=== PATIENT | female | born 1970 | race Caucasian/White ===

== ENCOUNTER 2019-09-28 07:23 | Emergency (ER) | payer MEDICAID, OTHER ==
[2019-09-28] MEDS ORDERED: Metoclopramide 10 MG/2 ML SDV IM ONE (08:17)
[2019-09-28] MEDS ORDERED: Dicyclomine 20 MG/2 ML SDV IM ONE (08:20)
[2019-09-28] MEDS ORDERED: Sodium Chloride 0.9% 1,000 ML IV ONE (08:21)
[2019-09-28] MEDS ORDERED: GI Cocktail Oral Solution 30 ML PO ONE (08:50)
[2019-09-28 08:53] LABS: ANION GAP 15.1
--- NOTE | 2019-09-28 09:01 | EDM.PDOC ---
ED HPI GENERAL MEDICAL PROBLEM - General Chief Complaint: Abdominal Pain Stated Complaint: THROWING UP Time Seen by Provider: 09/28/19 07:58 Source of Information: Reports: Patient, RN History Limitations: Reports: No Limitations - History of Present Illness INITIAL COMMENTS - FREE TEXT/NARRATIVE: 49-year-old female who presents to the ER with complaints of upper abdominal pain and dry heaving 4 hours. Patient reports eating cereal last night and got up this morning with abdominal pain. Pain is reported as 9 out of 10 and described as sharp. Patient was seen in the clinic a couple of days ago with complaints of the same with a negative ultrasound. Patient reports she's had similar symptoms in [place] a couple of months ago and they couldn't find anything. She denies any gallbladder problems, pancreatitis, illegal drugs, but admits to smoking marijuana daily for nausea. She tried Zofran prior to ER visit and vomited. She denies any bloody emesis, diarrhea, and constipation. Had a bowel movement prior to ER visit. Nothing makes pain better but movement makes it worse. Denies alcohol consumption. Denies any history of diabetes.she denies any upper respiratory infection, fevers or chills, shortness of breath, chest pain, and palpitations. Epigastric Pain Score (Numeric/FACES): 9 - Related Data Allergies Allergy/AdvReac Type Severity Reaction Status Date / Time gabapentin Allergy Rash Verified 09/28/19 07:47 sumatriptan [From Imitrex] Allergy Vomiting Verified 09/28/19 07:46 Home Meds: Home Meds Levothyroxine [Synthroid] 188 mcg PO ACBREAKFAST 09/28/19 [History] Propranolol HCl 40 mg PO DAILY 09/28/19 [History] lisinopriL [Lisinopril] 10 mg PO DAILY 09/28/19 [History] Past Medical History HEENT History: Reports: Impaired Vision Cardiovascular History: Reports: None Respiratory History: Reports: None Gastrointestinal History: Reports: None Genitourinary History: Reports: None [employer] History: Reports: Musculoskeletal History: Reports: None Neurological History: Reports: None Psychiatric History: Reports: None Endocrine/Metabolic History: Reports: None Hematologic History: Reports: None Immunologic History: Reports: None Oncologic (Cancer) History: Reports: None Dermatologic History: Reports: None - Infectious Disease History Infectious Disease History: Reports: Chicken Pox, Hepatitis C - Past Surgical History Head Surgeries/Procedures: Reports: None HEENT Surgical History: Reports: None Cardiovascular Surgical History: Reports: None Respiratory Surgical History: Reports: None Female Surgical History: Reports: Hysterectomy Musculoskeletal Surgical History: Reports: None Social & Family History - Family History Family Medical History: Noncontributory - Tobacco Use Smoking Status *Q: Current Every Day Smoker Years of Tobacco use: 40 Packs/Tins Daily: 0.5 Second Hand Smoke Exposure: No - Caffeine Use Caffeine Use: Reports: Coffee, Soda - Recreational Drug Use Recreational Drug Use: No ED ROS GENERAL - Review of Systems Review Of Systems: Comprehensive ROS is negative, except as noted in HPI. ED EXAM, GI/ABD - Physical Exam Exam: See Below Exam Limited By: No Limitations General Appearance: Alert, Moderate Distress Respiratory/Chest: No Respiratory Distress, Lungs Clear, Normal Breath Sounds, No Accessory Muscle Use, Chest Non-Tender Cardiovascular: Normal Peripheral Pulses, Regular Rate, Rhythm, No Edema, No Gallop, No JVD, No Murmur, No Rub GI/Abdominal Exam: Normal Bowel Sounds, Soft, No Organomegaly, No Distention, No Abnormal Bruit, No Mass, Pelvis Stable, Tender (Female) Exam: Deferred Extremities: Normal Inspection, Normal Range of Motion, Non-Tender, Normal Capillary Refill, No Pedal Edema Neurological: Alert, Oriented, CN II-XII Intact, Normal Cognition, Normal Gait, Normal Reflexes, No Motor/Sensory Deficits Psychiatric: Normal Affect, Normal Mood Skin Exam: Warm, Dry, Intact, Normal Color, No Rash Lymphatic: No Adenopathy Course - Vital Signs Last Recorded V/S: Last Vital Signs Temp 97 F 09/28/19 07:37 Pulse 60 09/28/19 07:37 Resp 18 09/28/19 07:37 BP 191/87 H 09/28/19 07:37 Pulse Ox 100 09/28/19 07:37 - Orders/Labs/Meds Orders: Active Orders 24 hr Category Date Time Status Abdomen Pelvis w Cont [CT] Urgent Exams 09/28/19 08:32 Taken Labs: Laboratory Tests 09/28/19 09/28/19 09/28/19 Range/Units 08:14 08:25 08:25 WBC 8.3 (5.0-10.0) 10^3/uL RBC 5.80 H (4.2-5.4) 10^6/uL Hgb 17.4 H (12.0-16.0) g/dL Hct 49.5 H (37.0-47.0) % MCV 85.3 (80-100) fL MCH 30.0 (27.0-34.0) pg MCHC 35.2 H (33.0-35.0) g/dL RDW Cancelled RDW Std Deviation Cancelled RDW Coeff of Trevin Cancelled Plt Count 257 (150-450) 10^3/uL MPV Cancelled Neut % (Auto) 65.1 (42.2-75.2) % Lymph % (Auto) 23.3 (20.5-50.1) % [place] % (Auto) 6.6 (2-8) % Eos % (Auto) 4.3 H (1.0-3.0) % Baso % (Auto) 0.7 (0.0-1.0) % Neutrophils % (Manual) Cancelled Band Neutrophils % Cancelled Lymphocytes % (Manual) Cancelled Atypical Lymphs % Cancelled Immat Monocytes % (Man) Cancelled Monocytes % (Manual) Cancelled Eosinophils % (Manual) Cancelled Basophils % (Manual) Cancelled Metamyelocytes % Cancelled Myelocytes % Cancelled Promyelocytes % Cancelled Blast Cells % Cancelled Plasma Cell % (Manual) Cancelled Nucleated RBC % Cancelled Nucleated RBCs Cancelled Differential Comment Cancelled Bilobed Neuts Cancelled Hypersegmented Neuts Cancelled Variant Lymphocytes Cancelled Atypical Lymphocytes Cancelled Abnormal Lymphocytes Cancelled Plasmacytoid Lymphs Cancelled Reactive Lymphocytes Cancelled Vacuolated Monocytes Cancelled Smudge Cells Cancelled Toxic Granulation Cancelled Dohle Bodies Cancelled Pelger-Huet Cells Cancelled Megakaryocytic Frags Cancelled Renetta Rods Cancelled WBC Morphology Comment Cancelled Platelet Estimate Cancelled Hypogranular Platelets Cancelled Platelet Agranulation Cancelled Clumped Platelets Cancelled Giant Platelets Cancelled Platelet Satelliting Cancelled Immature Plt Fraction Cancelled Bizarre Platelets Cancelled Plt Morphology Comment Cancelled Polychromasia Cancelled Hypochromasia Cancelled Poikilocytosis Cancelled Basophilic Stippling Cancelled Anisocytosis Cancelled Microcytosis Cancelled Macrocytosis Cancelled Spherocytes Cancelled Micro Spherocytes Cancelled Pappenheimer Bodies Cancelled Siderocytes Cancelled Sickle Cells Cancelled Target Cells Cancelled Tear Drop Cells Cancelled Ovalocytes Cancelled Stomatocytes Cancelled Helmet Cells Cancelled Alvarez-[place] Bodies Cancelled Nicholls Rings Cancelled [place] Cells Cancelled Elliptocytes Cancelled Acanthocytes (Spur) Cancelled Rouleaux Cancelled Hemoglobin C Crystals Cancelled Schistocytes Cancelled RBC Morph Comment Cancelled Smear Path Review Cancelled Trae Bodies Cancelled Sodium 138 (135-145) mmol/L Potassium 4.1 (3.6-5.0) mmol/L Chloride 101 (101-111) mmol/L Carbon Dioxide 26.0 (21.0-31.0) mmol/L Anion Gap 15.1 BUN 10 (7-18) mg/dL Creatinine 1.0 (0.6-1.3) mg/dL Est Cr Clr Drug Dosing 64.72 mL/min Estimated GFR (MDRD) 58 BUN/Creatinine Ratio 10.00 Glucose 126 H (74-105) mg/dL Calcium 9.5 (8.4-10.2) mg/dl Total Bilirubin 0.7 (0.2-1.0) mg/dL AST 70 H (10-42) IU/L ALT 73 H (10-60) IU/L Alkaline Phosphatase 119 (42-121) IU/L Total Protein 8.6 H (6.7-8.2) g/dl Albumin 4.3 (3.2-5.5) g/dl Globulin 4.3 Albumin/Globulin Ratio 1.00 Amylase (28-100) U/L Lipase (22-51) U/L Urine Opiates Screen Negative (NEGATIVE) Ur Oxycodone Screen Negative (NEGATIVE) Urine Methadone Screen Positive H (NEGATIVE) Ur Barbiturates Screen Negative (NEGATIVE) U Tricyclic Antidepress Negative (NEGATIVE) Ur Phencyclidine Scrn Negative (NEGATIVE) Ur Amphetamine Screen Negative (NEGATIVE) U Methamphetamines Scrn Negative (NEGATIVE) Urine MDMA Screen Negative (NEGATIVE) U Benzodiazepines Scrn Negative (NEGATIVE) Urine Cocaine Screen Negative (NEGATIVE) U Marijuana (THC) Screen Positive H (NEGATIVE) Bld Parasites Quantity Cancelled Slides for Path Review Cancelled 09/28/19 Range/Units 08:25 WBC (5.0-10.0) 10^3/uL RBC (4.2-5.4) 10^6/uL Hgb (12.0-16.0) g/dL Hct (37.0-47.0) % MCV (80-100) fL MCH (27.0-34.0) pg MCHC (33.0-35.0) g/dL RDW RDW Std Deviation RDW Coeff of Trevin Plt Count (150-450) 10^3/uL MPV Neut % (Auto) (42.2-75.2) % Lymph % (Auto) (20.5-50.1) % [place] % (Auto) (2-8) % Eos % (Auto) (1.0-3.0) % Baso % (Auto) (0.0-1.0) % Neutrophils % (Manual) Band Neutrophils % Lymphocytes % (Manual) Atypical Lymphs % Immat Monocytes % (Man) Monocytes % (Manual) Eosinophils % (Manual) Basophils % (Manual) Metamyelocytes % Myelocytes % Promyelocytes % Blast Cells % Plasma Cell % (Manual) Nucleated RBC % Nucleated RBCs Differential Comment Bilobed Neuts Hypersegmented Neuts Variant Lymphocytes Atypical Lymphocytes Abnormal Lymphocytes Plasmacytoid Lymphs Reactive Lymphocytes Vacuolated Monocytes Smudge Cells Toxic Granulation Dohle Bodies Pelger-Huet Cells Megakaryocytic Frags Renetta Rods WBC Morphology Comment Platelet Estimate Hypogranular Platelets Platelet Agranulation Clumped Platelets Giant Platelets Platelet Satelliting Immature Plt Fraction Bizarre Platelets Plt Morphology Comment Polychromasia Hypochromasia Poikilocytosis Basophilic Stippling Anisocytosis Microcytosis Macrocytosis Spherocytes Micro Spherocytes Pappenheimer Bodies Siderocytes Sickle Cells Target Cells Tear Drop Cells Ovalocytes Stomatocytes Helmet Cells Alvarez-[place] Bodies Nicholls Rings [place] Cells Elliptocytes Acanthocytes (Spur) Rouleaux Hemoglobin C Crystals Schistocytes RBC Morph Comment Smear Path Review Trae Bodies Sodium (135-145) mmol/L Potassium (3.6-5.0) mmol/L Chloride (101-111) mmol/L Carbon Dioxide (21.0-31.0) mmol/L Anion Gap BUN (7-18) mg/dL Creatinine (0.6-1.3) mg/dL Est Cr Clr Drug Dosing mL/min Estimated GFR (MDRD) BUN/Creatinine Ratio Glucose (74-105) mg/dL Calcium (8.4-10.2) mg/dl Total Bilirubin (0.2-1.0) mg/dL AST (10-42) IU/L ALT (10-60) IU/L Alkaline Phosphatase (42-121) IU/L Total Protein (6.7-8.2) g/dl Albumin (3.2-5.5) g/dl Globulin Albumin/Globulin Ratio Amylase 69 (28-100) U/L Lipase 79 H (22-51) U/L Urine Opiates Screen (NEGATIVE) Ur Oxycodone Screen (NEGATIVE) Urine Methadone Screen (NEGATIVE) Ur Barbiturates Screen (NEGATIVE) U Tricyclic Antidepress (NEGATIVE) Ur Phencyclidine Scrn (NEGATIVE) Ur Amphetamine Screen (NEGATIVE) U Methamphetamines Scrn (NEGATIVE) Urine MDMA Screen (NEGATIVE) U Benzodiazepines Scrn (NEGATIVE) Urine Cocaine Screen (NEGATIVE) U Marijuana (THC) Screen (NEGATIVE) Bld Parasites Quantity Slides for Path Review Meds: Medications Discontinued Medications Generic Name Dose Route Start Last Admin Trade Name Freq PRN Reason Stop Dose Admin Al Hydroxide/Mg Hydroxide 30 ml 09/28/19 08:50 09/28/19 08:58 Gi Cocktail PO 09/28/19 08:51 30 ml ONETIME ONE Administration Dicyclomine HCl 20 mg 09/28/19 08:20 09/28/19 08:31 Bentyl IM 09/28/19 08:21 20 mg ONETIME ONE Administration Sodium Chloride 1,000 mls @ 1,000 mls/hr 09/28/19 08:21 09/28/19 08:31 Normal Saline IV 09/28/19 09:20 1,000 mls/hr .BOLUS ONE Administration Iopamidol 100 ml 09/28/19 09:23 09/28/19 09:25 Isovue-300 (61%) IVPUSH 09/28/19 09:24 100 ml ONETIME ONE Administration Metoclopramide HCl 10 mg 09/28/19 08:17 09/28/19 08:31 Reglan IM 09/28/19 08:18 10 mg ONETIME ONE Administration - Radiology Interpretation Free Text/Narrative:: FINDINGS: Liver: There is mild diffuse fatty infiltration of the liver. No focal lesions within the liver. Gallbladder and bile ducts: Normal. No calcified stones. No ductal dilation. Pancreas: Normal. No ductal dilation. Spleen: Normal. No splenomegaly. Adrenals: Normal. No mass. Kidneys and ureters: Normal. No hydronephrosis. Stomach and bowel: Unremarkable. No obstruction. No mucosal thickening. Appendix: The appendix is identified and normal in caliber. No evidence of appendicitis. Intraperitoneal space: Unremarkable. No free air. No significant fluid collection. Vasculature: Unremarkable. No abdominal aortic aneurysm. Lymph nodes: Unremarkable. No enlarged lymph nodes. Bladder: Unremarkable as visualized. Reproductive: The uterus is absent. Bones/joints: Unremarkable. No acute fracture. Soft tissues: Unremarkable. IMPRESSION: No acute findings in the abdomen or pelvis. Thank you for allowing us to participate in the care of your patient. Dictated and Authenticated by: Deshawn Mast MD 09/28/2019 9:44 AM Central Time ([place] & [place]) - Re-Assessments/Exams Free Text/Narrative Re-Assessment/Exam: 09/28/19 10:12 49-year-old female who presents to the ER with complaints of abdominal pain. She uses a treatment from [email or web address]. In the ER she was administered Bentyl IM, Reglan 10 mg IV and a GI cocktail with moderate relief in symptoms. Normal saline bolus administered. Labs and UDS were done and results review the patient. Patient admits to taking methadone for substance abuse treatment. CT scan results as documented in the chart and these were reviewed with patient. Rx for Reglan and milk of magnesia send home with patient." Encourage patient to push fluids and follow up with her PCP for GI referral. Patient does admit to a history of hep C and that she is being referred to GI. Departure - Departure Time of Disposition: 10:04 Disposition: Home, Self-Care 01 Condition: Good Clinical Impression: Fatty liver, Marijuana smoker Abdominal pain Qualifiers: Abdominal location: upper abdomen, unspecified Qualified Code(s): R10.10 - Upper abdominal pain, unspecified Nausea and vomiting Qualifiers: Vomiting type: unspecified Vomiting Intractability: unspecified Qualified Code( s): R11.2 - Nausea with vomiting, unspecified Constipation Qualifiers: Constipation type: drug induced constipation Qualified Code(s): K59.03 - Drug induced constipation - Discharge Information *PRESCRIPTION DRUG MONITORING PROGRAM REVIEWED*: No *COPY OF PRESCRIPTION DRUG MONITORING REPORT IN PATIENT JENNIFER: No Instructions: Abdominal Pain, Adult, [id number], Nausea and Vomiting, Adult, [id number], Constipation, Adult, [id number], Fatty Liver, Cannabis Use Disorder Forms: ED Department Discharge Additional Instructions: Follow-up with the clinic with PCP as discussed. Symptoms to return to the ER discussed with patient and she verbalizes understanding. Sepsis Event Note - Evaluation Sepsis Screening Result: No Definite Risk - Focused Exam Vital Signs: Vital Signs Temp Pulse Resp BP Pulse Ox 09/28/19 07:37 97 F 60 18 191/87 H 100 Date Exam was Performed: 09/28/19 Time Exam was Performed: 09:50 - My Orders Last 24 Hours: My Active Orders 09/28/19 08:32 Abdomen Pelvis w Cont [CT] Urgent - Assessment/Plan Last 24 Hours: My Active Orders 09/28/19 08:32 Abdomen Pelvis w Cont [CT] Urgent
[2019-09-28] MEDS ORDERED: Iopamidol 612 MG/ML 100 ML Bottle IVPUSH ONE (09:23)
== END 2019-09-28 10:15 | disposition home or self-care (01) ==
LOC: DL.ED 07:23
DX: K76.0 Fatty (change of) liver, not elsewhere classified (principal); F12.90 Cannabis use, unspecified, uncomplicated; R10.10 Upper abdominal pain, unspecified; R11.2 Nausea with vomiting, unspecified; K59.03 Drug induced constipation; F17.210 Nicotine dependence, cigarettes, uncomplicated; Z88.8 Allergy status to other drugs, medicaments and biological substances
CPT/HCPCS: 36415; 74177; 80053; 80305; 82150; 83690; 85025; 96360; 96361; 96372; 99284; A9270; J0500; J2765; J7030; Q9967

== ENCOUNTER 2019-12-22 14:16 | Emergency (ER) | payer MEDICAID ==
[2019-12-22] MEDS ORDERED: Sodium Chloride 0.9% 10 ML Syringe FLUSH PRN (14:27)
[2019-12-22] MEDS ORDERED: Sodium Chloride 0.9% 1,000 ML IV ONE (14:28)
[2019-12-22] MEDS ORDERED: diphenhydrAMINE 50 MG/ML SDV IVPUSH ONE (14:28)
[2019-12-22] MEDS ORDERED: Famotidine 20 MG/2 ML SDV IVPUSH ONE (14:28)
[2019-12-22] MEDS ORDERED: Metoclopramide 10 MG/2 ML SDV IVPUSH ONE (14:29)
[2019-12-22] MEDS ORDERED: GI Cocktail Oral Solution 30 ML PO ONE (14:32)
[2019-12-22 15:30] LABS: ANION GAP 16.1 mEq/L (7-13); CHLORIDE,CL 101 mmol/L (98-107); SODIUM,NA 140 mmol/L (136-145)
--- NOTE | 2019-12-22 15:32 | EDM.PDOC ---
Scribed by Aracelis Flores 12/22/19 [id number] for Issa Meier MD ED HPI GENERAL MEDICAL PROBLEM - General Chief Complaint: Gastrointestinal Problem Stated Complaint: throwing up Time Seen by Provider: 12/22/19 14:24 Source of Information: Reports: Patient, RN, RN Notes Reviewed History Limitations: Reports: Uncooperative - History of Present Illness INITIAL COMMENTS - FREE TEXT/NARRATIVE: Patient presents to ER by POV with complaint of having vomiting and nausea with epigastric pain recurrent for the last two months. The current episode began 2 days ago. She states that she needs an EGD but she is waiting on the appointment /referral. She does still have her gallbladder. Denies Hx of pancreatitis. She does repeatedly take mask off, and is pacing around in ER. Asked to please stay in her ER room and explained the current need due to Covid prevention.Denies chest pain, shortness of breath or fever. Denies recent travel. Denies exposure to confirmed or suspected COVID-19 cases. *From arrival to the ER pt has been very rude, noncompliant, and demanding of staff. The pt was treated professionally at all times, but attempts to demand the care she wishes, and is attempting to demand certain treatments, and medications, while refusing others. We have explained that she must remain in her designated room and wear her mask due to the Covid precautions. 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 Medication(s) (Zofran) Epigastric Pain Score (Numeric/FACES): 10 - Related Data Allergies Allergy/AdvReac Type Severity Reaction Status Date / Time acetaminophen Allergy Rash Verified 12/22/19 14:28 [From Tylenol-Codeine] atorvastatin calcium Allergy Muscle Verified 12/22/19 14:28 [From Lipitor] Aches codeine phosphate Allergy Rash Verified 12/22/19 14:28 [From Tylenol-Codeine] pregabalin [From Lyrica] Allergy Rash Verified 12/22/19 14:28 propoxyphene napsylate Allergy Rash Verified 12/22/19 14:28 [From Darvocet-N] sumatriptan [From Imitrex] Allergy Headache Verified 12/22/19 14:28 sumatriptan succinate Allergy Headache Verified 12/22/19 14:28 [From Imitrex] gabapentin AdvReac Nausea Verified 12/22/19 14:28 Home Meds: Home Meds Levothyroxine 175 mcg PO DAILY 10/07/14 [History] Propranolol HCl 40 mg PO DAILY 10/07/14 [History] lisinopriL [Prinivil] 10 mg PO DAILY 10/07/14 [History] Albuterol Sulfate 1 vial INH ASDIRECTED PRN 10/26/19 [History] Albuterol Sulfate [Albuterol Sulfate Hfa] 1 - 2 puff INH ASDIRECTED PRN [History] Methadone 150 mg PO DAILY 10/26/19 [History] Ondansetron [Zofran] 8 mg PO Q8HR PRN 10/26/19 [History] Past Medical History HEENT History: Reports: Impaired Vision, Other (See Below) Other HEENT History: WEARS CORRECTIVE LENSES - GLASSES Cardiovascular History: Reports: High Cholesterol, Hypertension Gastrointestinal History: Reports: Hepatitis, Other (See Below) Other Gastrointestinal History: Iscemic Colitis 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 (See Below) Other 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 History: CERVICAL CANCER Musculoskeletal History: Reports: Back Pain, Chronic, Fracture, Fibromyalgia Other Musculoskeletal History: R ANKLE Neurological History: Reports: Migraines, Reflex Sympathetic Dystrophy, Other ( See Below) (Fibromyalgia) Psychiatric History: Reports: Addiction, Other (See Below) Other Psychiatric History: HX OF NARCOTIC HABITUATION Endocrine/Metabolic History: Reports: Hypothyroidism, Obesity/BMI 30+, Other ( See Below) Other Endocrine/Metabolic History: HYPOTHYRIODISM Oncologic (Cancer) History: Reports: Cervix Other Oncologic History: hysterectomy - Infectious Disease History Infectious Disease History: Reports: Hepatitis C - Past Surgical History HEENT Surgical History: Reports: Other (See Below) Other HEENT Surgeries/Procedures: WEARS TOP PARTIAL PLATE GI Surgical History: Reports: Colonoscopy Female Surgical History: Reports: Hysterectomy Endocrine Surgical History: Reports: Thyroidectomy Other Endocrine Surgeries/Procedures: Partial Musculoskeletal Surgical History: Reports: Other (See Below) Other Musculoskeletal Surgeries/Procedures:: Foot surgery Social & Family History - Family History Family Medical History: Noncontributory - Caffeine Use Caffeine Use: Reports: Coffee, Soda - Recreational Drug Use Recreational Drug Use: Yes Drug Use in Last 12 Months: No Recreational Drug Type: Reports: Other (see below) (Recovered opiate addict.) Recreational Drug Use Frequency: Not Used In Over 1 Year ED ROS GENERAL - Review of Systems Review Of Systems: Comprehensive ROS is negative, except as noted in HPI. ED EXAM, GI/ABD - Physical Exam Exam: See Below Exam Limited By: Uncooperative General Appearance: Alert, No Apparent Distress, Other (Uncomfortable, but non- toxic female appearing much older that stated age.) Eyes: Bilateral: Normal Appearance (No scleral icterus) Throat/Mouth: Normal Voice, No Airway Compromise Neck: Normal Inspection, Full Range of Motion Respiratory/Chest: No Respiratory Distress, Lungs Clear Cardiovascular: Regular Rate, Rhythm, Bradycardia GI/Abdominal Exam: Normal Bowel Sounds, Soft, No Distention, No Abnormal Bruit, Tender (focal epigastric tenderness). No: Guarding, Rigid, Rebound Neurological: Alert, Oriented, No Motor/Sensory Deficits Psychiatric: Flat Affect, Other (Angry, uncooperative) Skin Exam: Warm, Dry, Intact, Other (Old track cohen at B/L upper extremities.) Course - Vital Signs Last Recorded V/S: Last Vital Signs Temp 97.4 F 12/22/19 14:25 Pulse 52 L 12/22/19 14:25 Resp 16 12/22/19 14:25 BP 209/99 H 12/22/19 14:25 Pulse Ox 99 12/22/19 14:25 - Orders/Labs/Meds Orders: Active Orders 24 hr Category Date Time Status Peripheral IV Care [RC] . DIRECTED Care 12/22/19 14:28 Active Sodium Chloride 0.9% [Saline Flush] Med 12/22/19 14:27 Active 10 ml FLUSH ASDIRECTED PRN Peripheral IV Insertion Adult [OM.PC] Stat Oth 12/22/19 14:28 Ordered Medication Orders Sodium Chloride (Saline Flush) 10 ml FLUSH ASDIRECTED PRN PRN Reason: Keep Vein Open Last Admin: 12/22/19 15:03 Dose: 10 ml Labs: Laboratory Tests 12/22/19 12/22/19 Range/Units 14:55 14:55 WBC 7.8 (5.0-10.0) 10^3/uL RBC 5.72 H (4.2-5.4) 10^6/uL Hgb 17.0 H D (12.0-16.0) g/dL Hct 47.6 H (37.0-47.0) % MCV 83.2 D (80-100) fL MCH 29.7 (27.0-34.0) pg MCHC 35.7 H (33.0-35.0) g/dL Plt Count 202 (150-450) 10^3/uL Neut % (Auto) 68.7 (42.2-75.2) % Lymph % (Auto) 22.8 (20.5-50.1) % [place] % (Auto) 5.1 (2-8) % Eos % (Auto) 2.6 (1.0-3.0) % Baso % (Auto) 0.8 (0.0-1.0) % Sodium 140 (136-145) mmol/L Potassium 4.1 (3.5-5.1) mmol/L Chloride 101 (98-107) mmol/L Carbon Dioxide 27 (21-32) mmol/L Anion Gap 16.1 H (7-13) mEq/L BUN 8 (7-18) mg/dL Creatinine 0.83 (0.55-1.02) mg/dL Est Cr Clr Drug Dosing 83.80 mL/min Estimated GFR (MDRD) > 60 BUN/Creatinine Ratio 9.6 (No establ ref range) Glucose 135 H (74-99) mg/dL Calcium 8.5 (8.5-10.1) mg/dL Total Bilirubin 0.6 (0.2-1.0) mg/dL AST 64 H (15-37) U/L ALT 59 (14-59) U/L Alkaline Phosphatase 136 H (46-116) U/L Total Protein 7.7 (6.4-8.2) g/dL Albumin 3.8 (3.4-5.0) g/dL Globulin 3.9 Albumin/Globulin Ratio 1.0 Amylase 47 (25-115) U/L Lipase 162 (73-393) U/L Meds: Medications Generic Name Dose Route Start Last Admin Trade Name Freq PRN Reason Stop Dose Admin Sodium Chloride 10 ml 04/04/20 14:27 12/22/19 15:03 Saline Flush FLUSH 10 ml ASDIRECTED PRN Administration Keep Vein Open Discontinued Medications Generic Name Dose Route Start Last Admin Trade Name Peter PRN Reason Stop Dose Admin Al Hydroxide/Mg Hydroxide 30 ml 12/22/19 14:32 12/22/19 14:36 Gi Cocktail PO 12/22/19 14:33 30 ml ONETIME ONE Administration Diphenhydramine HCl 25 mg 12/22/19 14:28 12/22/19 15:02 Benadryl IVPUSH 12/22/19 14:29 25 mg ONETIME ONE Administration Famotidine 20 mg 12/22/19 14:28 12/22/19 15:02 Pepcid IVPUSH 12/22/19 14:29 20 mg ONETIME ONE Administration Sodium Chloride 1,000 mls @ 999 mls/hr 12/22/19 14:28 12/22/19 15:03 Normal Saline IV 12/22/19 15:28 999 mls/hr .BOLUS ONE Administration Metoclopramide HCl 5 mg 12/22/19 14:29 12/22/19 15:03 Reglan IVPUSH 12/22/19 14:30 5 mg ONETIME ONE Administration Departure - Departure Time of Disposition: 15:30 Disposition: Home, Self-Care 01 Condition: Fair Clinical Impression: Epigastric abdominal pain Nausea and vomiting Qualifiers: Vomiting type: unspecified Vomiting Intractability: intractable Qualified Code( s): R11.2 - Nausea with vomiting, unspecified - Discharge Information *PRESCRIPTION DRUG MONITORING PROGRAM REVIEWED*: No *COPY OF PRESCRIPTION DRUG MONITORING REPORT IN PATIENT JENNIFER: No Instructions: Abdominal Pain, Adult, Nausea and Vomiting, Adult, [facility]um-ev-Baas Forms: ED Department Discharge Additional Instructions: Rx: Promethazine 25mg (tablets, and rectal suppositories if unable to keep tablets down). Rx: Pepcid 20mg Follow up in clinic this coming week for recheck. Sepsis Event Note - Focused Exam Vital Signs: Vital Signs Temp Pulse Resp BP Pulse Ox 12/22/19 14:25 97.4 F 52 L 16 209/99 H 99 Date Exam was Performed: 12/22/19 Time Exam was Performed: 15:32 - My Orders Last 24 Hours: My Active Orders 12/22/19 14:27 Sodium Chloride 0.9% [Saline Flush] 10 ml FLUSH ASDIRECTED PRN 12/22/19 14:28 Peripheral IV Care [RC] . DIRECTED Peripheral IV Insertion Adult [OM.PC] Stat - Assessment/Plan Last 24 Hours: My Active Orders 12/22/19 14:27 Sodium Chloride 0.9% [Saline Flush] 10 ml FLUSH ASDIRECTED PRN 12/22/19 14:28 Peripheral IV Care [RC] . DIRECTED Peripheral IV Insertion Adult [OM.PC] Stat I have read and agree with the documentation that has been completed regarding this visit. By signing this record, I attest that the documentation was completed in my physical presence and is an accurate record of the encounter.
== END 2019-12-22 15:40 | disposition home or self-care (01) ==
LOC: DL.ED 14:16 → MERGE 14:16 → DL.ED 15:40
DX: R11.2 Nausea with vomiting, unspecified (principal); R10.13 Epigastric pain; I10 Essential (primary) hypertension; E78.00 Pure hypercholesterolemia, unspecified; Z79.899 Other long term (current) drug therapy; Z88.8 Allergy status to other drugs, medicaments and biological substances; Z88.5 Allergy status to narcotic agent
CPT/HCPCS: 36415; 80053; 82150; 83690; 85025; 96361; 96374; 96375; 99284; A9270; J1200; J2765; J3490; J7030

== ENCOUNTER 2020-10-10 10:34 | Emergency (ER) | payer MEDICAID ==
[2020-10-10] MEDS ORDERED: Sodium Chloride 0.9% 1,000 ML IV ONE (10:57)
[2020-10-10] MEDS ORDERED: Metoclopramide 10 MG/2 ML SDV IVPUSH ONE (10:57)
--- NOTE | 2020-10-10 11:14 | EDM.PDOC ---
ED HPI GENERAL MEDICAL PROBLEM - General Chief Complaint: Gastrointestinal Problem Stated Complaint: VOMITTING FOR 3 DAYS Time Seen by Provider: 10/10/20 10:55 Source of Information: Reports: Patient History Limitations: Reports: No Limitations - History of Present Illness INITIAL COMMENTS - FREE TEXT/NARRATIVE: This 50 yo female patient reports to the ED with a 4 day history of nausea/vomiting. The patient reports she has had similar symptoms for the past year. The patient did have an EGD done in the past 2 weeks, but the results were inconclusive due to the patient having food in her stomach despite not eating for 18 hours prior to test. The patient reports her current pain is rated at a 7/10. Onset: Unknown/Unsure Location: Reports: Abdomen Quality: Reports: Sharp, Stabbing Severity: Severe Improves with: Reports: None Worsens with: Reports: None Associated Symptoms: Reports: Nausea/Vomiting Abdominal Pain Score (Numeric/FACES): 9 - Related Data Allergies Allergy/AdvReac Type Severity Reaction Status Date / Time acetaminophen Allergy Rash Verified 10/10/20 10:46 [From Tylenol-Codeine] atorvastatin calcium Allergy Muscle Verified 10/10/20 10:46 [From Lipitor] Aches codeine phosphate Allergy Rash Verified 10/10/20 10:46 [From Tylenol-Codeine] gabapentin Allergy Rash Verified 10/10/20 10:46 pregabalin [From Lyrica] Allergy Rash Verified 10/10/20 10:46 propoxyphene napsylate Allergy Rash Verified 10/10/20 10:46 [From Darvocet-N] sumatriptan [From Imitrex] Allergy Vomiting Verified 10/10/20 10:46 sumatriptan succinate Allergy Headache Verified 10/10/20 10:46 [From Imitrex] Home Meds: Home Meds Levothyroxine 175 mcg PO DAILY 10/07/14 [History] Propranolol HCl 40 mg PO DAILY 10/07/14 [History] lisinopriL [Prinivil] 10 mg PO DAILY 10/07/14 [History] Levothyroxine [Synthroid] 188 mcg PO ACBREAKFAST 09/28/19 [History] Propranolol HCl 40 mg PO DAILY 09/28/19 [History] lisinopriL [Lisinopril] 10 mg PO DAILY 09/28/19 [History] Albuterol Sulfate 1 vial INH ASDIRECTED PRN 02/07/20 [History] Albuterol Sulfate [Albuterol Sulfate Hfa] 1 - 2 puff INH ASDIRECTED PRN 10/26/19 [History] Methadone 150 mg PO DAILY 10/26/19 [History] Ondansetron [Zofran] 8 mg PO Q8HR PRN 10/26/19 [History] Past Medical History HEENT History: Reports: Impaired Vision, Other (See Below) Other HEENT History: WEARS CORRECTIVE LENSES - GLASSES Cardiovascular History: Reports: High Cholesterol, Hypertension Respiratory History: Reports: None Gastrointestinal History: Reports: Hepatitis, Other (See Below) Other Gastrointestinal History: Iscemic Colitis Genitourinary History: Reports: None 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 (See Below), 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: CERVICAL CANCER Musculoskeletal History: Reports: Back Pain, Chronic, Fibromyalgia, Fracture Other Musculoskeletal History: R ANKLE Neurological History: Reports: Migraines, None, Other (See Below), Reflex Sympathetic Dystrophy Psychiatric History: Reports: Addiction, None, Other (See Below) Other Psychiatric History: HX OF NARCOTIC HABITUATION Endocrine/Metabolic History: Reports: Hypothyroidism, Other (See Below), Obesity/BMI 30+ Other Endocrine/Metabolic History: HYPOTHYRIODISM Hematologic History: Reports: None Immunologic History: Reports: None Oncologic (Cancer) History: Reports: Cervix, None Other Oncologic History: hysterectomy Dermatologic History: Reports: None - Infectious Disease History Infectious Disease History: Reports: Chicken Pox, Hepatitis C - Past Surgical History Head Surgeries/Procedures: Reports: None HEENT Surgical History: Reports: None, Other (See Below) Other HEENT Surgeries/Procedures: WEARS TOP PARTIAL PLATE Cardiovascular Surgical History: Reports: None Respiratory Surgical History: Reports: None GI Surgical History: Reports: Colonoscopy Female Surgical History: Reports: Hysterectomy Endocrine Surgical History: Reports: Thyroidectomy Other Endocrine Surgeries/Procedures: Partial Musculoskeletal Surgical History: Reports: None, Other (See Below) Other Musculoskeletal Surgeries/Procedures:: Foot surgery Social & Family History - Family History Family Medical History: No Pertinent Family History - Tobacco Use Tobacco Use Status *Q: Current Every Day Tobacco User Years of Tobacco use: 30 Packs/Tins Daily: 0.5 Second Hand Smoke Exposure: No - Caffeine Use Caffeine Use: Reports: Soda - Recreational Drug Use Recreational Drug Use: Yes Recreational Drug Type: Reports: Marijuana/Hashish ED ROS GENERAL - Review of Systems Review Of Systems: Comprehensive ROS is negative, except as noted in HPI. ED EXAM, GI/ABD - Physical Exam Exam: See Below Exam Limited By: No Limitations General Appearance: Alert, WD/WN, Moderate Distress Eyes: Bilateral: Normal Appearance, EOMI Ears: Normal External Exam, Normal Canal, Hearing Grossly Normal, Normal TMs Nose: Normal Inspection, Normal Mucosa, No Blood Head: Atraumatic, Normocephalic Neck: Normal Inspection, Supple, Non-Tender, Full Range of Motion Respiratory/Chest: No Respiratory Distress, Lungs Clear, Normal Breath Sounds, No Accessory Muscle Use, Chest Non-Tender Cardiovascular: Normal Peripheral Pulses, Regular Rate, Rhythm, No Edema, No Gallop, No JVD, No Murmur, No Rub GI/Abdominal Exam: Tender (diffuse tenderness) (Female) Exam: Deferred Rectal (Female) Exam: Deferred Back Exam: Normal Inspection, Full Range of Motion, NT Extremities: Normal Inspection, Normal Range of Motion, Non-Tender, Normal Capillary Refill, No Pedal Edema Neurological: Alert, Oriented, CN II-XII Intact Psychiatric: Anxious Skin Exam: Warm, Dry, Intact, Normal Color, No Rash Lymphatic: No Adenopathy Course - Vital Signs Last Recorded V/S: Last Vital Signs Temp 36.2 C 10/10/20 10:40 Pulse 58 L 10/10/20 13:04 Resp 16 10/10/20 13:04 BP 184/77 H 10/10/20 13:04 Pulse Ox 98 10/10/20 13:04 - Orders/Labs/Meds Labs: Laboratory Tests 10/10/20 10/10/20 10/10/20 Range/Units 11:16 11:16 11:16 WBC 5.9 (5.0-10.0) 10^3/uL RBC 5.53 H (4.2-5.4) 10^6/uL Hgb 16.4 H (12.0-16.0) g/dL Hct 45.5 (37.0-47.0) % MCV 82.3 (80-100) fL MCH 29.7 (27.0-34.0) pg MCHC 36.0 H (33.0-35.0) g/dL Plt Count 223 (150-450) 10^3/uL Neut % (Auto) 67.8 (42.2-75.2) % Lymph % (Auto) 24.4 (20.5-50.1) % [place] % (Auto) 6.0 (2-8) % Eos % (Auto) 0.9 L (1.0-3.0) % Baso % (Auto) 0.9 (0.0-1.0) % Sodium 139 (136-145) mmol/L Potassium 3.9 (3.5-5.1) mmol/L Chloride 100 (98-107) mmol/L Carbon Dioxide 29 (21-32) mmol/L Anion Gap 13.9 H (7-13) mEq/L BUN 17 (7-18) mg/dL Creatinine 1.16 H (0.55-1.02) mg/dL Est Cr Clr Drug Dosing 55.17 mL/min Estimated GFR (MDRD) 49 BUN/Creatinine Ratio 14.7 (No establ ref range) Glucose 103 H (74-99) mg/dL Lactic Acid 1.4 (0.4-2.0) mmol/L Calcium 9.3 (8.5-10.1) mg/dL Total Bilirubin 0.9 (0.2-1.0) mg/dL AST 33 (15-37) U/L ALT 45 (14-59) U/L Alkaline Phosphatase 92 (46-116) U/L Total Protein 8.2 (6.4-8.2) g/dL Albumin 3.9 (3.4-5.0) g/dL Globulin 4.3 Albumin/Globulin Ratio 0.9 Amylase 58 (25-115) U/L Lipase 184 (73-393) U/L Acetaminophen 0 L (10-30 (Therapeutic)) ug/mL Ethyl Alcohol < 3 (0) mg/dL Influenza Type A RNA (NEGATIVE) Influenza Type B RNA (NEGATIVE) SARS-CoV-2 RNA (PETAR) (NEGATIVE) 10/10/20 Range/Units 11:20 WBC (5.0-10.0) 10^3/uL RBC (4.2-5.4) 10^6/uL Hgb (12.0-16.0) g/dL Hct (37.0-47.0) % MCV (80-100) fL MCH (27.0-34.0) pg MCHC (33.0-35.0) g/dL Plt Count (150-450) 10^3/uL Neut % (Auto) (42.2-75.2) % Lymph % (Auto) (20.5-50.1) % [place] % (Auto) (2-8) % Eos % (Auto) (1.0-3.0) % Baso % (Auto) (0.0-1.0) % Sodium (136-145) mmol/L Potassium (3.5-5.1) mmol/L Chloride (98-107) mmol/L Carbon Dioxide (21-32) mmol/L Anion Gap (7-13) mEq/L BUN (7-18) mg/dL Creatinine (0.55-1.02) mg/dL Est Cr Clr Drug Dosing mL/min Estimated GFR (MDRD) BUN/Creatinine Ratio (No establ ref range) Glucose (74-99) mg/dL Lactic Acid (0.4-2.0) mmol/L Calcium (8.5-10.1) mg/dL Total Bilirubin (0.2-1.0) mg/dL AST (15-37) U/L ALT (14-59) U/L Alkaline Phosphatase (46-116) U/L Total Protein (6.4-8.2) g/dL Albumin (3.4-5.0) g/dL Globulin Albumin/Globulin Ratio Amylase (25-115) U/L Lipase (73-393) U/L Acetaminophen (10-30 (Therapeutic)) ug/mL Ethyl Alcohol (0) mg/dL Influenza Type A RNA Negative (NEGATIVE) Influenza Type B RNA Negative (NEGATIVE) SARS-CoV-2 RNA (PETAR) Negative (NEGATIVE) Meds: Medications Discontinued Medications Generic Name Dose Route Start Last Admin Trade Name Freq PRN Reason Stop Dose Admin Al Hydroxide/Mg Hydroxide 30 ml 10/10/20 12:00 10/10/20 12:23 Gi Cocktail PO 10/10/20 12:01 30 ml ONETIME ONE Administration Sodium Chloride 1,000 mls @ 500 mls/hr 10/10/20 10:57 10/10/20 11:13 Normal Saline IV 10/10/20 12:56 500 mls/hr .BOLUS ONE Administration Lorazepam 1 mg 10/10/20 12:53 10/10/20 13:01 Ativan IVPUSH 10/10/20 12:54 1 mg ONETIME ONE Administration Metoclopramide HCl 10 mg 10/10/20 10:57 10/10/20 11:13 Reglan IVPUSH 10/10/20 10:58 10 mg ONETIME ONE Administration - Re-Assessments/Exams Free Text/Narrative Re-Assessment/Exam: 10/10/20 11:40 The patient continued to report abdominal pain. The patient was advised of her CBC results. The patient's fluids will be continued with further treatment pending remainder or lab results. Departure - Departure Time of Disposition: 13:29 Disposition: Home, Self-Care 01 Condition: Fair Clinical Impression: Epigastric abdominal pain Nausea and vomiting Qualifiers: Vomiting type: unspecified Vomiting Intractability: intractable Qualified Code(s): R11.2 - Nausea with vomiting, unspecified - Discharge Information *PRESCRIPTION DRUG MONITORING PROGRAM REVIEWED*: Not Applicable *COPY OF PRESCRIPTION DRUG MONITORING REPORT IN PATIENT JENNIFER: Not Applicable Instructions: Abdominal Pain, Adult, [id number] Forms: ED Department Discharge Care Plan Goals: The patient was advised of the examination results during the visit. The patient was given IV fluids, IV Ativan (for anxiety), IV Reglan (for nausea) and an oral GI cocktail during the visit. The patient was encouraged to follow-up with her primary care facility for continued evaluation and further management. The patient was encouraged to contact her pain management provider to inform them of her current symptoms. If the patient has any additional symptoms or further concerns, the patient should either return to the emergency department or visit her primary care facility. Sepsis Event Note (ED) - Evaluation Sepsis Screening Result: No Definite Risk - Focused Exam Vital Signs: Vital Signs Temp Pulse Resp BP Pulse Ox 10/10/20 13:04 58 L 16 184/77 H 98 10/10/20 10:40 36.2 C 57 L 16 198/93 H 100
[2020-10-10 11:46] LABS: ANION GAP 13.9 mEq/L (7-13); CHLORIDE,CL 100 mmol/L (98-107); SODIUM,NA 139 mmol/L (136-145)
[2020-10-10 11:49] LABS: ACETAMINOPHEN 0 ug/mL (10-30 (Therapeutic))
[2020-10-10] MEDS ORDERED: GI Cocktail Oral Solution 30 ML PO ONE (12:00)
[2020-10-10 12:04] LABS: CORONAVIRUS COVID-19 NAA NEGATIVE (NEGATIVE)
[2020-10-10] MEDS ORDERED: LORazepam 2 MG/ML SDV IVPUSH ONE (12:53)
== END 2020-10-10 13:39 | disposition home or self-care (01) ==
LOC: DL.ED 10:34
DX: R10.13 Epigastric pain (principal); R11.2 Nausea with vomiting, unspecified; I10 Essential (primary) hypertension; E03.9 Hypothyroidism, unspecified; E66.9 Obesity, unspecified; Z68.23 Body mass index [BMI] 23.0-23.9, adult; Z88.6 Allergy status to analgesic agent; Z88.8 Allergy status to other drugs, medicaments and biological substances; Z88.5 Allergy status to narcotic agent; Z79.899 Other long term (current) drug therapy; Z72.0 Tobacco use; Z20.822 Contact with and (suspected) exposure to COVID-19
CPT/HCPCS: 0240U; 36415; 80053; 80143; 80307; 82150; 83605; 83690; 85025; 96374; 96375; 99283; 99284; A9270; J2060; J2765; J7030

== ENCOUNTER 2020-10-14 12:10 | Emergency (ER) | payer MEDICAID ==
[2020-10-14] MEDS: Promethazine 25 MG/ML SDV IM ONE (12:52)
[2020-10-14 13:20] LABS: ANION GAP 12.8 mEq/L (7-13); CHLORIDE,CL 103 mmol/L (98-107); SODIUM,NA 140 mmol/L (136-145)
[2020-10-14 13:21] LABS: ACETAMINOPHEN 0 ug/mL (10-30 (Therapeutic))
[2020-10-14] MEDS: Sodium Chloride 0.9% 1,000 ML IV ONE (13:59)
[2020-10-14] MEDS: Iopamidol 612 MG/ML 100 ML Bottle IVPUSH ONE (14:17)
--- NOTE | 2020-10-14 14:42 | CT ---
EXAMINATION: Abdomen Pelvis w Cont SEX: Female AGE: 50 years CLINICAL HISTORY: 50-year-old hypertensive 150 pound female complaining of ABDOMINAL PAIN. History of cervical cancer and hysterectomy. Scan technique: Volume acquisition of data emergency CT scan abdomen and pelvis obtained without oral contrast but during the intravenous administration 75 cc nonionic Isovue contrast at 2.5 cc/s via injector while patient was lying supine on the Siemens multislice scanner [place], [place]. All data archived in the PACS system for storage, reformatting axial/sagittal/coronal planes, study. Interpretation: 1. Chronic severe lower lumbar disc disease i.e. loss of intervertebral disc space L4-5 with dense reactive sclerosis and hypertrophic marginal spondylosis. 2. Surgically absent uterus. No adnexal mass lesions. 3. Atheromatous calcification scattered along the course of normal caliber aortoiliac vessels. No sign of aneurysm or dissection. 4. Gallbladder, liver, stomach, spleen, pancreas and adrenal glands anatomically correct i.e. negative. 5. Normal reniform size, axis and configuration. No sign of renal cortical mass, nephrolithiasis or obstructive uropathy. Unenhanced urinary bladder unremarkable. 6. No abdominal mass lesion, inflammatory "dirty" peritoneal fat, ventral wall hernia, signs of mechanical bowel obstruction, mesenteric/retroperitoneal lymphadenopathy, ascites or free intraperitoneal air. Terminal ileum unremarkable. Normal appendix RLQ. 7. Lung bases clear. No pericardial or pleural effusion. CONCLUSION: Abnormal lower lumbar spine. Hysterectomy. No sign of abdominal malignancy, mechanical bowel obstruction, or acute peritonitis.
[2020-10-14] MEDS: LORazepam 2 MG/ML SDV IVPUSH ONE (15:04)
[2020-10-14] MEDS: GI Cocktail Oral Solution 30 ML PO ONE (15:05)
--- NOTE | 2020-10-14 15:33 | EDM.PDOC ---
ED HPI GENERAL MEDICAL PROBLEM - General Chief Complaint: General Stated Complaint: AMBULANCE Time Seen by Provider: 10/14/20 13:20 Source of Information: Reports: Patient History Limitations: Reports: No Limitations - History of Present Illness INITIAL COMMENTS - FREE TEXT/NARRATIVE: This 50 yo female patient reports to the ED with increased abdominal pain and nausea/vomiting. The patient reports she has not eaten or been able to drink anything in the past 7 days. The patient has been seen with similar symptoms in the past week. The patient has not been able to get into an appointment with her primary care facility. The patient is currently being seen through the methadone clinic, but has not been able to take her methadone due to nausea and vomiting. Onset: Unknown/Unsure Duration: Day(s):, Constant Location: Reports: Abdomen Quality: Reports: Other Severity: Moderate Improves with: Reports: None Worsens with: Reports: None Context: Reports: Other Associated Symptoms: Reports: Nausea/Vomiting Generalized Pain Score (Numeric/FACES): 10 - Related Data Allergies Allergy/AdvReac Type Severity Reaction Status Date / Time acetaminophen Allergy Rash Verified 10/10/20 10:46 [From Tylenol-Codeine] atorvastatin calcium Allergy Muscle Verified 10/10/20 10:46 [From Lipitor] Aches codeine phosphate Allergy Rash Verified 10/10/20 10:46 [From Tylenol-Codeine] gabapentin Allergy Rash Verified 10/10/20 10:46 pregabalin [From Lyrica] Allergy Rash Verified 10/10/20 10:46 propoxyphene napsylate Allergy Rash Verified 10/10/20 10:46 [From Darvocet-N] sumatriptan [From Imitrex] Allergy Vomiting Verified 10/10/20 10:46 sumatriptan succinate Allergy Headache Verified 10/10/20 10:46 [From Imitrex] Home Meds: Home Meds Levothyroxine 175 mcg PO DAILY 10/07/14 [History] Propranolol HCl 40 mg PO DAILY 10/07/14 [History] lisinopriL [Prinivil] 10 mg PO DAILY 10/07/14 [History] Levothyroxine [Synthroid] 188 mcg PO ACBREAKFAST 09/28/19 [History] Propranolol HCl 40 mg PO DAILY 09/28/19 [History] lisinopriL [Lisinopril] 10 mg PO DAILY 09/28/19 [History] Albuterol Sulfate 1 vial INH ASDIRECTED PRN 10/26/19 [History] Albuterol Sulfate [Albuterol Sulfate Hfa] 1 - 2 puff INH ASDIRECTED PRN 10/26/19 [History] Methadone 150 mg PO DAILY 10/26/19 [History] Ondansetron [Zofran] 8 mg PO Q8HR PRN 10/26/19 [History] Past Medical History HEENT History: Reports: Impaired Vision, Other (See Below) Other HEENT History: WEARS CORRECTIVE LENSES - GLASSES Cardiovascular History: Reports: High Cholesterol, Hypertension Respiratory History: Reports: None Gastrointestinal History: Reports: Hepatitis, Other (See Below) Other Gastrointestinal History: Iscemic Colitis Genitourinary History: Reports: None 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 (See Below), Other HEAD MACHINIST History: CERVICAL CANCER Musculoskeletal History: Reports: Back Pain, Chronic, Fibromyalgia, Fracture Other Musculoskeletal History: R ANKLE Neurological History: Reports: Migraines, None, Other (See Below), Reflex Sympathetic Dystrophy Psychiatric History: Reports: Addiction, None, Other (See Below) Other Psychiatric History: HX OF NARCOTIC HABITUATION Endocrine/Metabolic History: Reports: Hypothyroidism, Other (See Below), Obesity/BMI 30+ Other Endocrine/Metabolic History: HYPOTHYRIODISM Hematologic History: Reports: None Immunologic History: Reports: None Oncologic (Cancer) History: Reports: Cervix, None Other Oncologic History: hysterectomy Dermatologic History: Reports: None - Infectious Disease History Infectious Disease History: Reports: Chicken Pox, Hepatitis C - Past Surgical History Head Surgeries/Procedures: Reports: None HEENT Surgical History: Reports: None, Other (See Below) Other HEENT Surgeries/Procedures: WEARS TOP PARTIAL PLATE Cardiovascular Surgical History: Reports: None Respiratory Surgical History: Reports: None GI Surgical History: Reports: Colonoscopy Female Surgical History: Reports: Hysterectomy Endocrine Surgical History: Reports: Thyroidectomy Other Endocrine Surgeries/Procedures: Partial Musculoskeletal Surgical History: Reports: None, Other (See Below) Other Musculoskeletal Surgeries/Procedures:: Foot surgery Social & Family History - Family History Family Medical History: No Pertinent Family History - Tobacco Use Tobacco Use Status *Q: Unknown Ever Used Tobacco - Caffeine Use Caffeine Use: Reports: Soda - Recreational Drug Use Recreational Drug Use: Yes Drug Use in Last 12 Months: No Recreational Drug Type: Reports: Oxycodone Recreational Drug Use Frequency: Not Used In Over 6 Months ED ROS GENERAL - Review of Systems Review Of Systems: Comprehensive ROS is negative, except as noted in HPI. ED EXAM, GENERAL - Physical Exam Exam: See Below Exam Limited By: No Limitations General Appearance: Alert, WD/WN, Moderate Distress Eye Exam: Bilateral Eye: EOMI, Normal Inspection, PERRL Ears: Normal External Exam, Normal Canal, Hearing Grossly Normal, Normal TMs Nose: Normal Inspection, Normal Mucosa, No Blood Throat/Mouth: Normal Inspection, Normal Lips, Normal Teeth, Normal Gums, Normal Oropharynx, Normal Voice, No Airway Compromise Head: Atraumatic, Normocephalic Neck: Normal Inspection, Supple, Non-Tender, Full Range of Motion Respiratory/Chest: No Respiratory Distress, Lungs Clear, Normal Breath Sounds, No Accessory Muscle Use, Chest Non-Tender Cardiovascular: Normal Peripheral Pulses, Regular Rate, Rhythm, No Edema, No Gallop, No JVD, No Murmur, No Rub GI/Abdominal: Tender (Female) Exam: Deferred Rectal (Female) Exam: Deferred Back Exam: Normal Inspection, Full Range of Motion, NT Extremities: Normal Inspection, Normal Range of Motion, Non-Tender, Normal Capillary Refill, No Pedal Edema Neurological: Alert, Oriented, CN II-XII Intact, Normal Cognition, Normal Gait, Normal Reflexes, No Motor/Sensory Deficits Psychiatric: Normal Affect, Normal Mood Skin Exam: Warm, Dry, Intact, Normal Color, No Rash Lymphatic: No Adenopathy Course - Vital Signs Last Recorded V/S: Last Vital Signs Temp 36.9 C 10/14/20 13:16 Pulse 51 L 10/14/20 13:16 Resp 20 10/14/20 13:16 BP 191/90 H 10/14/20 13:16 Pulse Ox 100 10/14/20 13:16 - Orders/Labs/Meds Orders: Active Orders 24 hr Category Date Time Status CULTURE BLOOD [BC] Stat Lab 10/14/20 12:54 Received DRUG SCREEN URINE BIORAD [URCHEM] Stat Lab 10/14/20 12:42 Ordered UA RFX STEFANIE AND CULT IF INDIC [URIN] Urgent Lab 10/14/20 12:42 Ordered HYDROmorphone [Dilaudid] Med 10/14/20 15:24 Once 0.5 mg IM ONETIME ONE Labs: Laboratory Tests 10/14/20 10/14/20 10/14/20 Range/Units 12:54 12:54 12:54 WBC 6.4 (5.0-10.0) 10^3/uL RBC 5.90 H (4.2-5.4) 10^6/uL Hgb 17.5 H (12.0-16.0) g/dL Hct 47.6 H (37.0-47.0) % MCV 80.7 (80-100) fL MCH 29.7 (27.0-34.0) pg MCHC 36.8 H (33.0-35.0) g/dL Plt Count 272 (150-450) 10^3/uL Neut % (Auto) 68.4 (42.2-75.2) % Lymph % (Auto) 23.2 (20.5-50.1) % O[place]Brien % (Auto) 5.0 (2-8) % Eos % (Auto) 2.2 (1.0-3.0) % Baso % (Auto) 1.2 H (0.0-1.0) % Sodium 140 (136-145) mmol/L Potassium 3.8 (3.5-5.1) mmol/L Chloride 103 (98-107) mmol/L Carbon Dioxide 28 (21-32) mmol/L Anion Gap 12.8 (7-13) mEq/L BUN 13 (7-18) mg/dL Creatinine 1.29 H (0.55-1.02) mg/dL Est Cr Clr Drug Dosing TNP Estimated GFR (MDRD) 43 BUN/Creatinine Ratio 10.1 (No establ ref range) Glucose 115 H (74-99) mg/dL Lactic Acid 1.0 (0.4-2.0) mmol/L Calcium 9.1 (8.5-10.1) mg/dL Total Bilirubin 1.0 (0.2-1.0) mg/dL AST 28 (15-37) U/L ALT 36 (14-59) U/L Alkaline Phosphatase 97 (46-116) U/L Total Protein 8.4 H (6.4-8.2) g/dL Albumin 4.1 (3.4-5.0) g/dL Globulin 4.3 Albumin/Globulin Ratio 1.0 Salicylates (2.8-20(Therapeutic)) mg/dL Acetaminophen 0 L (10-30 (Therapeutic)) ug/mL Ethyl Alcohol < 3 (0) mg/dL 10/14/20 Range/Units 12:54 WBC (5.0-10.0) 10^3/uL RBC (4.2-5.4) 10^6/uL Hgb (12.0-16.0) g/dL Hct (37.0-47.0) % MCV (80-100) fL MCH (27.0-34.0) pg MCHC (33.0-35.0) g/dL Plt Count (150-450) 10^3/uL Neut % (Auto) (42.2-75.2) % Lymph % (Auto) (20.5-50.1) % O[place]Brien % (Auto) (2-8) % Eos % (Auto) (1.0-3.0) % Baso % (Auto) (0.0-1.0) % Sodium (136-145) mmol/L Potassium (3.5-5.1) mmol/L Chloride (98-107) mmol/L Carbon Dioxide (21-32) mmol/L Anion Gap (7-13) mEq/L BUN (7-18) mg/dL Creatinine (0.55-1.02) mg/dL Est Cr Clr Drug Dosing Estimated GFR (MDRD) BUN/Creatinine Ratio (No establ ref range) Glucose (74-99) mg/dL Lactic Acid (0.4-2.0) mmol/L Calcium (8.5-10.1) mg/dL Total Bilirubin (0.2-1.0) mg/dL AST (15-37) U/L ALT (14-59) U/L Alkaline Phosphatase (46-116) U/L Total Protein (6.4-8.2) g/dL Albumin (3.4-5.0) g/dL Globulin Albumin/Globulin Ratio Salicylates < 2.8 L (2.8-20(Therapeutic)) mg/dL Acetaminophen (10-30 (Therapeutic)) ug/mL Ethyl Alcohol (0) mg/dL Meds: Medications Discontinued Medications Generic Name Dose Route Start Last Admin Trade Name Freq PRN Reason Stop Dose Admin Al Hydroxide/Mg Hydroxide 30 ml 10/14/20 14:58 10/14/20 15:05 Gi Cocktail PO 10/14/20 14:59 30 ml ONETIME ONE Administration Sodium Chloride 1,000 mls @ 999 mls/hr 10/14/20 13:40 10/14/20 13:59 Normal Saline IV 10/14/20 14:40 999 mls/hr .BOLUS ONE Administration Iopamidol 100 ml 10/14/20 13:39 10/14/20 14:17 Isovue-300 (61%) IVPUSH 10/14/20 13:40 75 ml ONETIME ONE Administration Lorazepam 1 mg 10/14/20 14:56 10/14/20 15:04 Ativan IVPUSH 10/14/20 14:57 1 mg ONETIME ONE Administration Promethazine HCl 25 mg 10/14/20 12:46 10/14/20 12:52 Phenergan IM 10/14/20 12:47 25 mg ONETIME ONE Administration Departure - Departure Time of Disposition: 15:29 Disposition: Home, Self-Care 01 Condition: Fair Clinical Impression: Gastroenteritis Abdominal pain Qualifiers: Abdominal location: generalized Qualified Code(s): R10.84 - Generalized abdominal pain - Discharge Information *PRESCRIPTION DRUG MONITORING PROGRAM REVIEWED*: Not Applicable *COPY OF PRESCRIPTION DRUG MONITORING REPORT IN PATIENT JENNIFER: Not Applicable Instructions: Abdominal Pain, Adult, [id number] Care Plan Goals: The patient was advised of the examination and lab results during the visit. The patient was given IV fluids, IM Phenergan, oral GI Cocktail and an IM Dilaudid while in the ED. The patient was encouraged to stick to a BRAT diet (bananas, rice, applesauce and toast) with small frequent sips of fluid. If the patient has any additional symptoms or concerns, the patient should either return to the emergency department or follow-up with her primary care facility. Sepsis Event Note (ED) - Evaluation Sepsis Screening Result: No Definite Risk - Focused Exam Vital Signs: Vital Signs Temp Pulse Resp BP Pulse Ox 10/14/20 13:16 36.9 C 51 L 20 191/90 H 100 - My Orders Last 24 Hours: My Active Orders 10/14/20 12:42 DRUG SCREEN URINE BIORAD [URCHEM] Stat UA RFX STEFANIE AND CULT IF INDIC [URIN] Urgent 10/14/20 12:54 CULTURE BLOOD [BC] Stat 10/14/20 15:24 HYDROmorphone [Dilaudid] 0.5 mg IM ONETIME ONE - Assessment/Plan Last 24 Hours: My Active Orders 10/14/20 12:42 DRUG SCREEN URINE BIORAD [URCHEM] Stat UA RFX STEFANIE AND CULT IF INDIC [URIN] Urgent 10/14/20 12:54 CULTURE BLOOD [BC] Stat 10/14/20 15:24 HYDROmorphone [Dilaudid] 0.5 mg IM ONETIME ONE
[2020-10-14] MEDS: HYDROmorphone 0.5 MG/0.5 ML Syringe IM ONE (15:41)
== END 2020-10-14 16:00 | disposition home or self-care (01) ==
LOC: DL.ED 12:10
DX: K52.9 Noninfective gastroenteritis and colitis, unspecified (principal); I10 Essential (primary) hypertension; E03.9 Hypothyroidism, unspecified; E66.9 Obesity, unspecified; Z88.6 Allergy status to analgesic agent; Z88.8 Allergy status to other drugs, medicaments and biological substances; Z88.5 Allergy status to narcotic agent; Z79.899 Other long term (current) drug therapy
CPT/HCPCS: 36415; 74177; 80053; 80143; 80179; 80307; 83605; 85025; 87040; 96372; 96374; 99283; 99285; A9270; J1170; J2060; J2550; J7030; Q9967

== ENCOUNTER 2021-02-17 11:02 | Emergency (ER) | payer MEDICAID ==
--- NOTE | 2021-02-17 11:31 | EDM.PDOC ---
ED HPI GENERAL MEDICAL PROBLEM - General Chief Complaint: Gastrointestinal Problem Stated Complaint: NAUSEA AND VOMITING Time Seen by Provider: 02/17/21 11:29 Source of Information: Reports: Patient, Old Records, RN, RN Notes Reviewed History Limitations: Reports: No Limitations - History of Present Illness INITIAL COMMENTS - FREE TEXT/NARRATIVE: Pt presents to ER from home by POV with c/o onset of nausea, vomiting, and epigastric abdominal pain at 0700HRS this morning. Denies fever, chills, diarrhea, constipation, radiating pain, flank pain, or dysuria. Pt last ate beans and brats last evening. History of delayed gastric emptying. Pt states the current symptoms are very similar to past episodes. Pt states she is on a methadone contract with her doctor in [place], and because of the vomiting she could not keep her methadone down today, and that is making her anxious and possibly causes some additional withdrawal symptoms. Onset: Gradual Onset Date: 02/17/21 Onset Time: 07:00 Duration: Constant Location: Reports: Abdomen Quality: Reports: Same as Previous Episode Severity: Severe Improves with: Reports: None Worsens with: Reports: Eating Associated Symptoms: Reports: No Other Symptoms Abdomen Pain Score (Numeric/FACES): 10 - Related Data Allergies Allergy/AdvReac Type Severity Reaction Status Date / Time acetaminophen Allergy Rash Verified 02/17/21 11:28 [From Tylenol-Codeine] atorvastatin calcium Allergy Muscle Verified 02/17/21 11:28 [From Lipitor] Aches codeine phosphate Allergy Rash Verified 02/17/21 11:28 [From Tylenol-Codeine] gabapentin Allergy Rash Verified 02/17/21 11:28 pregabalin [From Lyrica] Allergy Rash Verified 02/17/21 11:28 propoxyphene napsylate Allergy Rash Verified 02/17/21 11:28 [From Darvocet-N] sumatriptan [From Imitrex] Allergy Vomiting Verified 02/17/21 11:28 sumatriptan succinate Allergy Headache Verified 02/17/21 11:28 [From Imitrex] Home Meds: Home Meds Albuterol Sulfate 0.63 mg .ROUTE ASDIRECTED 02/17/21 [History] Levothyroxine Sodium [Levothyroxine] 75 mcg PO ASDIRECTED 02/17/21 [History] Methadone HCl [Methadose] 110 mg PO DAILY 02/17/21 [History] Ondansetron [Zuplenz] 8 mg PO ASDIRECTED 02/17/21 [History] Propranolol HCl 40 mg PO ASDIRECTED 02/17/21 [History] Propranolol [Inderal] 40 mg PO DAILY 02/17/21 [History] lisinopriL [Lisinopril] 20 mg PO ASDIRECTED 02/17/21 [History] Past Medical History HEENT History: Reports: Impaired Vision, Other (See Below) Other HEENT History: WEARS CORRECTIVE LENSES - GLASSES Cardiovascular History: Reports: High Cholesterol, Hypertension, Other (See Below) (Bradycardia) Respiratory History: Reports: None Gastrointestinal History: Reports: Hepatitis, Other (See Below) (Delayed gastric emptying) Other Gastrointestinal History: Iscemic Colitis Genitourinary History: Reports: None 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 (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), 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 Musculoskeletal History: Reports: Back Pain, Chronic, Fibromyalgia, Fracture Other Musculoskeletal History: R ANKLE Neurological History: Reports: Migraines, None, Other (See Below), Reflex Sympathetic Dystrophy Psychiatric History: Reports: Addiction, None, Other (See Below) Other Psychiatric History: HX OF NARCOTIC HABITUATION Endocrine/Metabolic History: Reports: Hypothyroidism, Other (See Below), Obesity/BMI 30+ Other Endocrine/Metabolic History: HYPOTHYRIODISM Hematologic History: Reports: None Immunologic History: Reports: None Oncologic (Cancer) History: Reports: Cervix, None Other Oncologic History: hysterectomy Dermatologic History: Reports: None - Infectious Disease History Infectious Disease History: Reports: Chicken Pox, Hepatitis C - Past Surgical History Head Surgeries/Procedures: Reports: None HEENT Surgical History: Reports: None, Other (See Below) Other HEENT Surgeries/Procedures: WEARS TOP PARTIAL PLATE Cardiovascular Surgical History: Reports: None Respiratory Surgical History: Reports: None GI Surgical History: Reports: Colonoscopy Female Surgical History: Reports: Hysterectomy Endocrine Surgical History: Reports: Thyroidectomy Other Endocrine Surgeries/Procedures: Partial Musculoskeletal Surgical History: Reports: None, Other (See Below) Other Musculoskeletal Surgeries/Procedures:: Foot surgery Social & Family History - Family History Family Medical History: No Pertinent Family History - Caffeine Use Caffeine Use: Reports: Soda ED ROS GENERAL - Review of Systems Review Of Systems: Comprehensive ROS is negative, except as noted in HPI. ED EXAM, GI/ABD - Physical Exam Exam: See Below Exam Limited By: No Limitations General Appearance: Alert, No Apparent Distress, Other (Ill but nontoxic appearing) Eyes: Bilateral: Normal Appearance (No scleral icterus) Nose: Normal Inspection Throat/Mouth: Normal Lips, Normal Voice, No Airway Compromise Head: Atraumatic, Normocephalic Neck: Normal Inspection Respiratory/Chest: No Respiratory Distress, Lungs Clear, Normal Breath Sounds, No Accessory Muscle Use, Chest Non-Tender Cardiovascular: Regular Rate, Rhythm, Bradycardia GI/Abdominal Exam: Normal Bowel Sounds, Soft, No Organomegaly, Tender (Epigastric). No: Guarding, Rigid, Rebound Back Exam: Normal Inspection. No: CVA Tenderness (L), CVA Tenderness (R) Extremities: Normal Inspection Neurological: Alert, Oriented, No Motor/Sensory Deficits Psychiatric: Depressed Mood, Flat Affect Skin Exam: Warm, Dry, Intact, Normal Color, No Rash #1 Interpretation EKG Date: 02/17/21 Time: 12:56 Rhythm: Other (Sinus christiano) Rate (Beats/Min): 48 [place]: Normal P-Wave: Present QRS: Normal ST-T: Normal QT: Normal Comparison: NA - No Prior EKG Course - Vital Signs Last Recorded V/S: Last Vital Signs Temp 96 F L 02/17/21 11:23 Pulse 47 L 02/17/21 11:23 Resp 16 02/17/21 11:23 BP 208/103 H 02/17/21 11:23 Pulse Ox 98 02/17/21 11:23 - Orders/Labs/Meds Orders: Active Orders 24 hr Category Date Time Status EKG 12 Lead [EKG Documentation Completion] [RC] STAT Care 02/17/21 12:51 Active Peripheral IV Care [RC] . DIRECTED Care 02/17/21 11:37 Active MAGNESIUM [CHEM] Stat Lab 02/17/21 11:49 Received TROPONIN I [CHEM] Stat Lab 02/17/21 11:49 Received TSH ULTRASENSITIVE [CHEM] Stat Lab 02/17/21 11:49 Received Sodium Chloride 0.9% [Saline Flush] Med 02/17/21 11:37 Active 10 ml FLUSH ASDIRECTED PRN Peripheral IV Insertion Adult [OM.PC] Stat Oth 02/17/21 11:37 Ordered Medication Orders Sodium Chloride (Sodium Chloride 0.9% 10 Ml Syringe) 10 ml FLUSH ASDIRECTED PRN PRN Reason: Keep Vein Open Labs: Laboratory Tests 02/17/21 02/17/21 Range/Units 11:49 11:49 WBC 5.6 (5.0-10.0) 10^3/uL RBC 5.11 (4.2-5.4) 10^6/uL Hgb 15.4 D (12.0-16.0) g/dL Hct 44.1 (37.0-47.0) % MCV 86.3 D (80-100) fL MCH 30.1 (27.0-34.0) pg MCHC 34.9 (33.0-35.0) g/dL Plt Count 199 (150-450) 10^3/uL Neut % (Auto) 70.0 (42.2-75.2) % Lymph % (Auto) 22.7 (20.5-50.1) % [place] % (Auto) 4.4 (2-8) % Eos % (Auto) 1.8 (1.0-3.0) % Baso % (Auto) 1.1 H (0.0-1.0) % Sodium 139 (136-145) mmol/L Potassium 3.9 (3.5-5.1) mmol/L Chloride 102 (98-107) mmol/L Carbon Dioxide 29 (21-32) mmol/L Anion Gap 11.9 (7-13) mEq/L BUN 9 (7-18) mg/dL Creatinine 1.00 (0.55-1.02) mg/dL Est Cr Clr Drug Dosing 56.83 mL/min Estimated GFR (MDRD) 58 BUN/Creatinine Ratio 9.0 (No establ ref range) Glucose 136 H (70-99) mg/dL Calcium 8.5 (8.5-10.1) mg/dL Total Bilirubin 0.6 (0.2-1.0) mg/dL AST 54 H (15-37) U/L ALT 52 (14-59) U/L Alkaline Phosphatase 104 (46-116) U/L Total Protein 7.5 (6.4-8.2) g/dL Albumin 3.4 (3.4-5.0) g/dL Globulin 4.1 Albumin/Globulin Ratio 0.8 Amylase 47 (25-115) U/L Lipase 95 (73-393) U/L Meds: Medications Generic Name Dose Route Start Last Admin Trade Name Peter PRN Reason Stop Dose Admin Sodium Chloride 10 ml 02/17/21 11:37 Sodium Chloride 0.9% 10 Ml Syringe FLUSH ASDIRECTED PRN Keep Vein Open Discontinued Medications Generic Name Dose Route Start Last Admin Trade Name Peter PRN Reason Stop Dose Admin Diphenhydramine HCl 25 mg 02/17/21 11:37 02/17/21 12:08 Diphenhydramine 50 Mg/Ml Sdv IVPUSH 02/17/21 11:38 25 mg ONETIME ONE Administration Hydralazine HCl 20 mg 02/17/21 13:04 Hydralazine 20 Mg/Ml Sdv IVPUSH 02/17/21 13:05 ONETIME ONE Hydromorphone HCl 1 mg 02/17/21 11:38 02/17/21 12:16 Hydromorphone 1 Mg/Ml Syringe IVPUSH 02/17/21 11:39 1 mg ONETIME ONE Administration Sodium Chloride 1,000 mls @ 999 mls/hr 02/17/21 11:37 02/17/21 12:07 Normal Saline IV 02/17/21 12:37 999 mls/hr .BOLUS ONE Administration Metoclopramide HCl 10 mg 02/17/21 11:38 02/17/21 12:08 Metoclopramide 10 Mg/2 Ml Sdv IVPUSH 02/17/21 11:39 10 mg ONETIME ONE Administration - Re-Assessments/Exams Free Text/Narrative Re-Assessment/Exam: 02/17/21 13:07 Pt's nausea has resolved, and epigastric pain is now "minimal". Pt has been bradycardic with HR 48 to 58 throughout this ER stay. Review of past several years ER records reveals pt's HR has been in the 50's chronically. Pt denies lightheadedness, orthostatic dizziness, or syncope. Pt's BP has been 20 0-203/95-105. She reports of chronic HTN and states her BP normally "runs high". She was instructed to f/u with her PCP this week for BP recheck and medication management. Departure - Departure Time of Disposition: 13:50 Disposition: Home, Self-Care 01 Condition: Good Clinical Impression: Epigastric abdominal pain, Uncontrolled hypertension, Chronic sinus bradycardia, Delayed gastric emptying Nausea & vomiting Qualifiers: Vomiting type: unspecified Vomiting Intractability: intractable Qualified Code(s): R11.2 - Nausea with vomiting, unspecified - Discharge Information *PRESCRIPTION DRUG MONITORING PROGRAM REVIEWED*: No *COPY OF PRESCRIPTION DRUG MONITORING REPORT IN PATIENT JENNIFER: No Instructions: Gastroparesis, Nausea and Vomiting, Adult, Hypertension, Adult Forms: ED Department Discharge Additional Instructions: Rx: Reglan (Metoclopramide)10mg for nausea and to improve gastric emptying. Follow up in clinic with your primary doctor within the next one week for blood pressure recheck and management. Sepsis Event Note (ED) - Evaluation Sepsis Screening Result: No Definite Risk - Focused Exam Vital Signs: Vital Signs Temp Pulse Resp BP Pulse Ox 02/17/21 11:23 96 F L 47 L 16 208/103 H 98 - My Orders Last 24 Hours: My Active Orders 02/17/21 11:37 Peripheral IV Care [RC] . DIRECTED Sodium Chloride 0.9% [Saline Flush] 10 ml FLUSH ASDIRECTED PRN Peripheral IV Insertion Adult [OM.PC] Stat 02/17/21 11:49 MAGNESIUM [CHEM] Stat TROPONIN I [CHEM] Stat TSH ULTRASENSITIVE [CHEM] Stat 02/17/21 12:51 EKG 12 Lead [EKG Documentation Completion] [RC] STAT - Assessment/Plan Last 24 Hours: My Active Orders 02/17/21 11:37 Peripheral IV Care [RC] . DIRECTED Sodium Chloride 0.9% [Saline Flush] 10 ml FLUSH ASDIRECTED PRN Peripheral IV Insertion Adult [OM.PC] Stat 02/17/21 11:49 MAGNESIUM [CHEM] Stat TROPONIN I [CHEM] Stat TSH ULTRASENSITIVE [CHEM] Stat 02/17/21 12:51 EKG 12 Lead [EKG Documentation Completion] [RC] STAT
[2021-02-17] MEDS ORDERED: Sodium Chloride 0.9% 10 ML Syringe FLUSH PRN (11:37)
[2021-02-17] MEDS ORDERED: Sodium Chloride 0.9% 1,000 ML IV ONE (11:37)
[2021-02-17] MEDS ORDERED: diphenhydrAMINE 50 MG/ML SDV IVPUSH ONE (11:37)
[2021-02-17] MEDS ORDERED: Metoclopramide 10 MG/2 ML SDV IVPUSH ONE (11:38)
[2021-02-17] MEDS ORDERED: HYDROmorphone 1 MG/ML Syringe IVPUSH ONE (11:38)
[2021-02-17 12:16] LABS: ANION GAP 11.9 mEq/L (7-13)
[2021-02-17] MEDS ORDERED: hydrALAZINE 20 MG/ML SDV IVPUSH ONE (13:04)
[2021-02-17] MEDS ORDERED: hydrALAZINE 20 MG/ML SDV IM ONE (13:13)
== END 2021-02-17 13:48 | disposition home or self-care (01) ==
LOC: DL.ED 11:02
DX: R11.2 Nausea with vomiting, unspecified (principal); I10 Essential (primary) hypertension; R00.1 Bradycardia, unspecified; K30 Functional dyspepsia; E66.9 Obesity, unspecified; E03.9 Hypothyroidism, unspecified; Z68.24 Body mass index [BMI] 24.0-24.9, adult; Z88.6 Allergy status to analgesic agent; Z88.8 Allergy status to other drugs, medicaments and biological substances; Z88.5 Allergy status to narcotic agent
CPT/HCPCS: 36415; 80053; 82150; 83690; 83735; 84443; 84484; 85025; 93005; 93010; 96372; 96374; 96375; 99284; 99284-25; J0360; J1170; J1200; J2765; J7030

== ENCOUNTER 2021-02-17 15:29 | Emergency (ER) | payer MEDICAID ==
[2021-02-17] MEDS ORDERED: LORazepam 2 MG/ML SDV IM ONE (15:55)
--- NOTE | 2021-02-17 16:52 | EDM.PDOC ---
Scribed by Aracelis Flores 02/17/21 3525 for Issa Meier MD ED HPI GENERAL MEDICAL PROBLEM - General Chief Complaint: General Stated Complaint: NAUSEA AND VOMITING Time Seen by Provider: 02/17/21 15:45 Source of Information: Reports: Patient, RN, RN Notes Reviewed History Limitations: Reports: No Limitations - History of Present Illness INITIAL COMMENTS - FREE TEXT/NARRATIVE: Patient presents to ER from home by POV with complaint of anxiety and shortness of breath. Patient was seen here today earlier with epigastric pain of a recurrent nature related to nondiabetic gastroparesis. This morning the patient was having nausea and vomiting. She was no longer nauseated, She is still having some epigastric cramping which she relates to delayed gastric emptying. Patient states that frequently when she has these episodes it causes increased anxiety and she feels that she can't breathe. She believes that this is impart because when she takes a deep breath it makes her stomach hurt even more. Onset: Today Duration: Constant Location: Reports: Abdomen Severity: Moderate Improves with: Reports: None Worsens with: Reports: Eating Associated Symptoms: Reports: No Other Symptoms - Related Data Allergies Allergy/AdvReac Type Severity Reaction Status Date / Time acetaminophen Allergy Rash Verified 02/17/21 11:28 [From Tylenol-Codeine] atorvastatin calcium Allergy Muscle Verified 02/17/21 11:28 [From Lipitor] Aches codeine phosphate Allergy Rash Verified 02/17/21 11:28 [From Tylenol-Codeine] gabapentin Allergy Rash Verified 02/17/21 11:28 pregabalin [From Lyrica] Allergy Rash Verified 02/17/21 11:28 propoxyphene napsylate Allergy Rash Verified 02/17/21 11:28 [From Darvocet-N] sumatriptan [From Imitrex] Allergy Vomiting Verified 02/17/21 11:28 sumatriptan succinate Allergy Headache Verified 02/17/21 11:28 [From Imitrex] Home Meds: Home Meds Albuterol Sulfate 0.63 mg .ROUTE ASDIRECTED 02/17/21 [History] Levothyroxine Sodium [Levothyroxine] 75 mcg PO ASDIRECTED 02/17/21 [History] Methadone HCl [Methadose] 110 mg PO DAILY 02/17/21 [History] Ondansetron [Zuplenz] 8 mg PO ASDIRECTED 02/17/21 [History] Propranolol HCl 40 mg PO ASDIRECTED 02/17/21 [History] Propranolol [Inderal] 40 mg PO DAILY 02/17/21 [History] lisinopriL [Lisinopril] 20 mg PO ASDIRECTED 02/17/21 [History] Past Medical History HEENT History: Reports: Impaired Vision, Other (See Below) Other HEENT History: WEARS CORRECTIVE LENSES - GLASSES Cardiovascular History: Reports: High Cholesterol, Hypertension, Other (See Below) (Bradycardia) Respiratory History: Reports: None Gastrointestinal History: Reports: Hepatitis, Other (See Below) Other Gastrointestinal History: Iscemic Colitis Genitourinary History: Reports: None 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 (See Below), Other 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 SET OPERATOR History: CERVICAL CANCER Musculoskeletal History: Reports: Back Pain, Chronic, Fibromyalgia, Fracture Other Musculoskeletal History: R ANKLE Neurological History: Reports: Migraines, None, Other (See Below), Reflex Sympathetic Dystrophy Psychiatric History: Reports: Addiction, None, Other (See Below) Other Psychiatric History: HX OF NARCOTIC HABITUATION Endocrine/Metabolic History: Reports: Hypothyroidism, Other (See Below), Obesity/BMI 30+ Other Endocrine/Metabolic History: HYPOTHYRIODISM Hematologic History: Reports: None Immunologic History: Reports: None Oncologic (Cancer) History: Reports: Cervix, None Other Oncologic History: hysterectomy Dermatologic History: Reports: None - Infectious Disease History Infectious Disease History: Reports: Chicken Pox, Hepatitis C - Past Surgical History Head Surgeries/Procedures: Reports: None HEENT Surgical History: Reports: None, Other (See Below) Other HEENT Surgeries/Procedures: WEARS TOP PARTIAL PLATE Cardiovascular Surgical History: Reports: None Respiratory Surgical History: Reports: None GI Surgical History: Reports: Colonoscopy Female Surgical History: Reports: Hysterectomy Endocrine Surgical History: Reports: Thyroidectomy Other Endocrine Surgeries/Procedures: Partial Musculoskeletal Surgical History: Reports: None, Other (See Below) Other Musculoskeletal Surgeries/Procedures:: Foot surgery Social & Family History - Family History Family Medical History: No Pertinent Family History - Caffeine Use Caffeine Use: Reports: Coffee ED ROS GENERAL - Review of Systems Review Of Systems: Comprehensive ROS is negative, except as noted in HPI. ED EXAM, GENERAL - Physical Exam Exam: See Below Exam Limited By: No Limitations General Appearance: Alert, No Apparent Distress, Anxious, Other (chronically ill appearing) Eye Exam: Bilateral Eye: Normal Inspection Head: Atraumatic, Normocephalic Neck: Normal Inspection Respiratory/Chest: No Respiratory Distress, Lungs Clear, Normal Breath Sounds, No Accessory Muscle Use, Chest Non-Tender Cardiovascular: Normal Peripheral Pulses, Regular Rate, Rhythm, No Edema, Bradycardia GI/Abdominal: Normal Bowel Sounds, Soft, No Organomegaly, No Distention, No Abnormal Bruit, No Mass, Tender (epigastric). No: Guarding, Rigid, Rebound Back Exam: Normal Inspection Extremities: Normal Inspection Neurological: Alert, Oriented, CN II-XII Intact, Normal Cognition, No Motor/Sensory Deficits Psychiatric: Anxious, Flat Affect Course - Vital Signs Last Recorded V/S: Last Vital Signs Temp 96 F L 02/17/21 16:39 Pulse 56 L 02/17/21 16:39 Resp 16 02/17/21 16:39 BP 183/95 H 02/17/21 16:39 Pulse Ox 98 02/17/21 16:39 - Orders/Labs/Meds Meds: Medications Discontinued Medications Generic Name Dose Route Start Last Admin Trade Name Tjq PRN Reason Stop Dose Admin Lorazepam 1 mg 02/17/21 15:55 02/17/21 16:10 Lorazepam 2 Mg/Ml Sdv IM 02/17/21 15:56 1 mg ONETIME ONE Administration Departure - Departure Time of Disposition: 16:51 Disposition: Home, Self-Care 01 Condition: Good Clinical Impression: Anxiety about health Anxiety disorder Qualifiers: Anxiety disorder type: generalized anxiety disorder Qualified Code(s): F41.1 - Generalized anxiety disorder - Discharge Information *PRESCRIPTION DRUG MONITORING PROGRAM REVIEWED*: Not Applicable *COPY OF PRESCRIPTION DRUG MONITORING REPORT IN PATIENT JENNIFER: Not Applicable Instructions: Managing Anxiety, Adult Forms: ED Department Discharge Additional Instructions: Follow up with your clinic doctor as needed. Sepsis Event Note (ED) - Focused Exam Vital Signs: Vital Signs Temp Pulse Resp BP Pulse Ox 02/17/21 16:39 96 F L 56 L 16 183/95 H 98 I have read and agree with the documentation that has been completed regarding this visit. By signing this record, I attest that the documentation was completed in my physical presence and is an accurate record of the encounter.
== END 2021-02-17 17:02 | disposition home or self-care (01) ==
LOC: DL.ED 15:29
DX: F41.1 Generalized anxiety disorder (principal); I10 Essential (primary) hypertension; E03.9 Hypothyroidism, unspecified; E66.9 Obesity, unspecified; Z88.6 Allergy status to analgesic agent; Z88.8 Allergy status to other drugs, medicaments and biological substances; Z88.5 Allergy status to narcotic agent; Z79.899 Other long term (current) drug therapy
CPT/HCPCS: 96372; 99283; 99284; J2060

== ENCOUNTER 2021-06-20 09:48 | Emergency (ER) | payer MEDICAID ==
[2021-06-20] MEDS ORDERED: Metoclopramide 10 MG/2 ML SDV IVPUSH ONE (11:05)
[2021-06-20] MEDS ORDERED: Sodium Chloride 0.9% 1,000 ML IV ONE (11:05)
[2021-06-20] MEDS ORDERED: LORazepam 2 MG/ML SDV IVPUSH ONE ×2 (11:05→12:59)
[2021-06-20] MEDS ORDERED: HYDROmorphone 0.5 MG/0.5 ML Syringe IVPUSH ONE (11:07)
[2021-06-20] MEDS ORDERED: hydrALAZINE 20 MG/ML SDV IVPUSH ONE ×2 (11:07→15:20)
[2021-06-20] MEDS ORDERED: diphenhydrAMINE 50 MG/ML SDV IVPUSH ONE (11:07)
--- NOTE | 2021-06-20 11:17 | EDM.PDOC ---
ED HPI GENERAL MEDICAL PROBLEM - General Chief Complaint: Abdominal Pain Stated Complaint: VOMITING Time Seen by Provider: 06/20/21 11:08 Source of Information: Reports: Patient, Old Records, RN, RN Notes Reviewed History Limitations: Reports: No Limitations - History of Present Illness INITIAL COMMENTS - FREE TEXT/NARRATIVE: Pt presents to ER from home by POV with c/o waking this morning with epigastric abdominal pain, nausea, and vomiting. Pt states she has experienced very similar episodes in the past for which she had a GI evaluation and endoscopy which shows some delayed gastric emptying. Pt denies fever, chills, diarrhea, constipation, bloody emesis, coffee ground emesis, or radiating pain. Pt rates the pain 9/10. Today she could not keep any of her medications down, including her methadone. Pt states she is very anxious and is trying to not have a panic attack. Onset: Today Duration: Constant Location: Reports: Abdomen Quality: Reports: Same as Previous Episode Severity: Severe Improves with: Reports: None Worsens with: Reports: Eating Associated Symptoms: Reports: No Other Symptoms abdominal Pain Score (Numeric/FACES): 8 - Related Data Allergies Allergy/AdvReac Type Severity Reaction Status Date / Time acetaminophen Allergy Rash Verified 06/20/21 11:16 [From Tylenol-Codeine] atorvastatin calcium Allergy Muscle Verified 06/20/21 11:16 [From Lipitor] Aches codeine phosphate Allergy Rash Verified 06/20/21 11:16 [From Tylenol-Codeine] gabapentin Allergy Rash Verified 06/20/21 11:16 pregabalin [From Lyrica] Allergy Rash Verified 06/20/21 11:16 propoxyphene napsylate Allergy Rash Verified 06/20/21 11:16 [From Darvocet-N] sumatriptan [From Imitrex] Allergy Vomiting Verified 06/20/21 11:16 sumatriptan succinate Allergy Headache Verified 06/20/21 11:16 [From Imitrex] Home Meds: Home Meds Albuterol Sulfate 0.63 mg INH Q4H PRN 02/17/21 [History] Levothyroxine Sodium [Levothyroxine] 75 mcg PO DAILY 02/17/21 [History] Methadone HCl [Methadose] 110 mg PO DAILY 02/17/21 [History] Ondansetron [Zuplenz] 8 mg PO Q8H PRN 02/17/21 [History] Propranolol HCl 40 mg PO DAILY 02/17/21 [History] Propranolol [Inderal] 40 mg PO DAILY 02/17/21 [History] lisinopriL [Lisinopril] 20 mg PO DAILY 02/17/21 [History] Past Medical History HEENT History: Reports: Impaired Vision, Other (See Below) Other HEENT History: WEARS CORRECTIVE LENSES - GLASSES Cardiovascular History: Reports: High Cholesterol, Hypertension, Other (See Below) Respiratory History: Reports: None Gastrointestinal History: Reports: Hepatitis, Other (See Below) Other Gastrointestinal History: Iscemic Colitis Genitourinary History: Reports: None 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: 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 (See Below), 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: CERVICAL CANCER Musculoskeletal History: Reports: Back Pain, Chronic, Fibromyalgia, Fracture Other Musculoskeletal History: R ANKLE Neurological History: Reports: Migraines, None, Other (See Below), Reflex Sympathetic Dystrophy Psychiatric History: Reports: Addiction, None, Other (See Below) Other Psychiatric History: HX OF NARCOTIC HABITUATION Endocrine/Metabolic History: Reports: Hypothyroidism, Other (See Below), Obesity/BMI 30+ Other Endocrine/Metabolic History: HYPOTHYRIODISM Hematologic History: Reports: None Immunologic History: Reports: None Oncologic (Cancer) History: Reports: Cervix, None Other Oncologic History: hysterectomy Dermatologic History: Reports: None - Infectious Disease History Infectious Disease History: Reports: Chicken Pox, Hepatitis C - Past Surgical History Head Surgeries/Procedures: Reports: None HEENT Surgical History: Reports: None, Other (See Below) Other HEENT Surgeries/Procedures: WEARS TOP PARTIAL PLATE Cardiovascular Surgical History: Reports: None Respiratory Surgical History: Reports: None GI Surgical History: Reports: Colonoscopy Female Surgical History: Reports: Hysterectomy Endocrine Surgical History: Reports: Thyroidectomy Other Endocrine Surgeries/Procedures: Partial Musculoskeletal Surgical History: Reports: None, Other (See Below) Other Musculoskeletal Surgeries/Procedures:: Foot surgery Social & Family History - Family History Family Medical History: No Pertinent Family History - Tobacco Use Tobacco Use Status *Q: Current Every Day Tobacco User Tobacco Use Within Last Twelve Months: Cigarettes - Caffeine Use Caffeine Use: Reports: Coffee - Living Situation & Occupation Occupation: Unemployed ED ROS GENERAL - Review of Systems Review Of Systems: Comprehensive ROS is negative, except as noted in HPI. ED EXAM, GI/ABD - Physical Exam Exam: See Below Exam Limited By: No Limitations General Appearance: Alert, Anxious, Thin, Other (Uncomfortable, but non-toxic, and chronically ill appearing.) Eyes: Bilateral: Normal Appearance (No scleral icterus) Nose: Normal Inspection, No Blood Throat/Mouth: Normal Voice, No Airway Compromise, Other (Dry oral mucus membranes) Head: Atraumatic, Normocephalic Neck: Normal Inspection, Non-Tender Respiratory/Chest: No Respiratory Distress, Lungs Clear, No Accessory Muscle Use, Chest Non-Tender, Decreased Breath Sounds Cardiovascular: Regular Rate, Rhythm, No Edema GI/Abdominal Exam: Soft, No Organomegaly, No Distention, No Abnormal Bruit, T jonna (Focal epigastric tenderness), Abnormal Bowel Sounds (Hypoactive bowel sounds). No: Guarding, Rigid, Rebound (Female) Exam: Deferred Rectal (Female) Exam: Deferred Back Exam: Full Range of Motion. No: CVA Tenderness (L), CVA Tenderness (R), Vertebral Tenderness Extremities: Normal Inspection, Normal Range of Motion, Non-Tender, No Pedal Edema Neurological: Alert, Oriented, Normal Cognition, Normal Gait, No Motor/Sensory Deficits Skin Exam: Warm, Dry, Intact, Normal Color, No Rash Course - Vital Signs Last Recorded V/S: Last Vital Signs Temp 96.4 F L 06/20/21 11:00 Pulse 58 L 06/20/21 11:00 Resp 20 06/20/21 11:00 BP 219/118 H 06/20/21 11:00 Pulse Ox 97 06/20/21 11:00 - Orders/Labs/Meds Orders: Active Orders 24 hr Category Date Time Status Peripheral IV Care [RC] . DIRECTED Care 06/20/21 11:05 Active Sodium Chloride 0.9% [Saline Flush] Med 06/20/21 11:04 Active 10 ml FLUSH ASDIRECTED PRN Peripheral IV Insertion Adult [OM.PC] Stat Oth 06/20/21 11:04 Ordered Medication Orders Sodium Chloride (Sodium Chloride 0.9% 10 Ml Syringe) 10 ml FLUSH ASDIRECTED PRN PRN Reason: Keep Vein Open Last Admin: 06/20/21 11:29 Dose: 10 ml Documented by: ROYAL Labs: Laboratory Tests 06/20/21 06/20/21 Range/Units 11:09 11:09 WBC 6.7 (5.0-10.0) 10^3/uL RBC 5.18 (4.2-5.4) 10^6/uL Hgb 15.5 (12.0-16.0) g/dL Hct 44.9 (37.0-47.0) % MCV 86.7 (80-100) fL MCH 29.9 (27.0-34.0) pg MCHC 34.5 (33.0-35.0) g/dL Plt Count 183 (150-450) 10^3/uL Neut % (Auto) 70.7 (42.2-75.2) % Lymph % (Auto) 22.6 (20.5-50.1) % Door % (Auto) 5.1 (2-8) % Eos % (Auto) 1.0 (1.0-3.0) % Baso % (Auto) 0.6 (0.0-1.0) % Sodium 140 (136-145) mmol/L Potassium 4.1 (3.5-5.1) mmol/L Chloride 101 (98-107) mmol/L Carbon Dioxide 30 (21-32) mmol/L Anion Gap 13.1 H (7-13) mEq/L BUN 10 (7-18) mg/dL Creatinine 0.97 (0.55-1.02) mg/dL Est Cr Clr Drug Dosing 63.59 mL/min Estimated GFR (MDRD) > 60 BUN/Creatinine Ratio 10.3 (No establ ref range) Glucose 153 H (70-99) mg/dL Calcium 8.9 (8.5-10.1) mg/dL Total Bilirubin 0.4 (0.2-1.0) mg/dL AST 42 H (15-37) U/L ALT 43 (14-59) U/L Alkaline Phosphatase 98 (46-116) U/L Total Protein 8.2 (6.4-8.2) g/dL Albumin 3.8 (3.4-5.0) g/dL Globulin 4.4 Albumin/Globulin Ratio 0.9 Amylase 45 (25-115) U/L Lipase 114 (73-393) U/L Meds: Medications Generic Name Dose Route Start Last Admin Trade Name Freq PRN Reason Stop Dose Admin Sodium Chloride 10 ml 06/20/21 11:04 06/20/21 11:29 Sodium Chloride 0.9% 10 Ml Syringe FLUSH 10 ml ASDIRECTED PRN Administration Keep Vein Open Discontinued Medications Generic Name Dose Route Start Last Admin Trade Name Peter PRN Reason Stop Dose Admin Diphenhydramine HCl 25 mg 06/20/21 11:07 06/20/21 11:33 Diphenhydramine 50 Mg/Ml Sdv IVPUSH 06/20/21 11:08 25 mg ONETIME ONE Administration Hydralazine HCl 20 mg 06/20/21 11:07 06/20/21 11:41 Hydralazine 20 Mg/Ml Sdv IVPUSH 06/20/21 11:08 20 mg ONETIME ONE Administration Hydralazine HCl 20 mg 06/20/21 15:20 Hydralazine 20 Mg/Ml Sdv IVPUSH 06/20/21 15:21 ONETIME ONE Hydromorphone HCl 0.5 mg 06/20/21 11:07 06/20/21 11:41 Hydromorphone 0.5 Mg/0.5 Ml Syringe IVPUSH 06/20/21 11:08 0.5 mg ONETIME ONE Administration Sodium Chloride 1,000 mls @ 999 mls/hr 06/20/21 11:05 06/20/21 11:29 Normal Saline IV 06/20/21 12:05 999 mls/hr .BOLUS ONE Administration Lorazepam 1 mg 06/20/21 11:05 06/20/21 11:31 Lorazepam 2 Mg/Ml Sdv IVPUSH 06/20/21 11:06 1 mg ONETIME ONE Administration Lorazepam 2 mg 06/20/21 12:59 06/20/21 13:03 Lorazepam 2 Mg/Ml Sdv IVPUSH 06/20/21 13:00 2 mg ONETIME ONE Administration Metoclopramide HCl 10 mg 06/20/21 11:05 06/20/21 11:41 Metoclopramide 10 Mg/2 Ml Sdv IVPUSH 06/20/21 11:06 10 mg ONETIME ONE Administration - Re-Assessments/Exams Free Text/Narrative Re-Assessment/Exam: 06/20/21 15:24 Pt is unwilling to address her uncontrolled hypertension at this time. She states she already has blood pressure medications that her doctor wants her to take, and that her blood pressure always runs very high and that this is what her body is used to. She also states her BP is always extremely high when it's checked in the hospital. I advised the pt f/u in clinic for BP recheck and r/o renal artery stenosis or other causes. Departure - Departure Time of Disposition: 15:28 Disposition: Home, Self-Care 01 Condition: Fair Clinical Impression: Epigastric abdominal pain, Nausea, Uncontrolled hypertension Anxiety disorder Qualifiers: Anxiety disorder type: generalized anxiety disorder Qualified Code(s): F41.1 - Generalized anxiety disorder - Discharge Information *PRESCRIPTION DRUG MONITORING PROGRAM REVIEWED*: No *COPY OF PRESCRIPTION DRUG MONITORING REPORT IN PATIENT JENNIFER: No Instructions: Nausea, Adult, Abdominal Pain, Adult, Managing Anxiety, Adult, Hypertension, Adult Forms: ED Department Discharge Additional Instructions: Rx: Zofran (Ondansetron) 4mg Rx: Pepcid (Famotidine) 40mg Take your blood pressure medications as prescribed. Follow up in clinic Tuesday or Tuesday, June 22 or for recheck of blood pressure and abdominal pain. Sepsis Event Note (ED) - Focused Exam Vital Signs: Vital Signs Temp Pulse Resp BP Pulse Ox 06/20/21 11:00 96.4 F L 58 L 20 219/118 H 97 - My Orders Last 24 Hours: My Active Orders 06/20/21 11:04 Sodium Chloride 0.9% [Saline Flush] 10 ml FLUSH ASDIRECTED PRN Peripheral IV Insertion Adult [OM.PC] Stat 06/20/21 11:05 Peripheral IV Care [RC] . DIRECTED - Assessment/Plan Last 24 Hours: My Active Orders 06/20/21 11:04 Sodium Chloride 0.9% [Saline Flush] 10 ml FLUSH ASDIRECTED PRN Peripheral IV Insertion Adult [OM.PC] Stat 06/20/21 11:05 Peripheral IV Care [RC] . DIRECTED
[2021-06-20] MEDS: Sodium Chloride 0.9% 10 ML Syringe FLUSH PRN ×2 (11:29→15:41)
[2021-06-20 11:39] LABS: ANION GAP 13.1 mEq/L (7-13); CHLORIDE,CL 101 mmol/L (98-107); SODIUM,NA 140 mmol/L (136-145)
== END 2021-06-20 16:31 | disposition home or self-care (01) ==
LOC: DL.ED 09:48
DX: R10.13 Epigastric pain (principal); R11.2 Nausea with vomiting, unspecified; F41.1 Generalized anxiety disorder; I10 Essential (primary) hypertension; E03.9 Hypothyroidism, unspecified; E66.9 Obesity, unspecified; Z68.20 Body mass index [BMI] 20.0-20.9, adult; Z72.0 Tobacco use; Z88.6 Allergy status to analgesic agent; Z88.8 Allergy status to other drugs, medicaments and biological substances; Z88.5 Allergy status to narcotic agent; Z79.899 Other long term (current) drug therapy
CPT/HCPCS: 36415; 80053; 82150; 83690; 85025; 96374; 96375; 96376; 99284; J0360; J1170; J1200; J2060; J2765; J7030

== ENCOUNTER 2022-04-24 11:20 | Emergency (ER) | payer MEDICAID ==
[2022-04-24] MEDS ORDERED: diphenhydrAMINE 50 MG/ML SDV IVPUSH ONE (11:44)
[2022-04-24] MEDS ORDERED: Metoclopramide 10 MG/2 ML SDV IVPUSH ONE (11:44)
[2022-04-24] MEDS ORDERED: Sodium Chloride 0.9% 10 ML Syringe FLUSH PRN (11:45)
[2022-04-24] MEDS ORDERED: LORazepam 2 MG/ML SDV IVPUSH ONE ×2 (11:45→12:31)
[2022-04-24] MEDS ORDERED: Famotidine 20 MG/2 ML SDV IVPUSH ONE (12:30)
== END 2022-04-24 13:21 | disposition home or self-care (01) ==
LOC: DL.ED 11:20
DX: F41.1 Generalized anxiety disorder (principal); R11.2 Nausea with vomiting, unspecified; E78.00 Pure hypercholesterolemia, unspecified; I10 Essential (primary) hypertension; E03.9 Hypothyroidism, unspecified; F17.210 Nicotine dependence, cigarettes, uncomplicated; E66.9 Obesity, unspecified; Z68.30 Body mass index [BMI] 30.0-30.9, adult; Z88.5 Allergy status to narcotic agent; Z88.8 Allergy status to other drugs, medicaments and biological substances; Z79.899 Other long term (current) drug therapy
CPT/HCPCS: 96374; 96375; 96376; 99283; 99284; J2060; J2765; J3490

== ENCOUNTER 2022-09-13 12:09 | Emergency (ER) | payer MEDICAID ==
[2022-09-13 14:21] LABS: CORONAVIRUS COVID-19 NAA NEGATIVE (NEGATIVE)
== END 2022-09-13 15:30 | disposition left against medical advice (07) ==
LOC: DL.ED 12:09
DX: Z20.822 Contact with and (suspected) exposure to COVID-19 (principal); Z53.21 Procedure and treatment not carried out due to patient leaving prior to being seen by health care provider
CPT/HCPCS: 0240U

== ENCOUNTER 2024-02-21 14:54 | Emergency (ER) | payer OTHER, MEDICAID ==
[2024-02-21] MEDS: Acetaminophen 500 MG Tab PO ONE (15:15)
[2024-02-21] MEDS: Ketorolac 30 MG/ML SDV IM ONE (15:15)
[2024-02-21] MEDS: Bacitracin Oint 1 GM U/D Packet TOP ONE (15:36)
== END 2024-02-21 15:33 | disposition home or self-care (01) ==
LOC: DL.ED 14:54
DX: S62.514A Nondisplaced fracture of proximal phalanx of right thumb, initial encounter for closed fracture (principal); I10 Essential (primary) hypertension; E03.9 Hypothyroidism, unspecified; E66.9 Obesity, unspecified; Z90.710 Acquired absence of both cervix and uterus; Z79.890 Hormone replacement therapy; Z79.899 Other long term (current) drug therapy; Z88.5 Allergy status to narcotic agent; Z88.8 Allergy status to other drugs, medicaments and biological substances; Z88.6 Allergy status to analgesic agent; Z68.21 Body mass index [BMI] 21.0-21.9, adult; W23.1XXA Caught, crushed, jammed, or pinched between stationary objects, initial encounter; Y99.0 Civilian activity done for income or pay
CPT/HCPCS: 73140; 96372; 99283; A9270; J1885

== ENCOUNTER 2024-03-10 10:45 | Emergency (ER) | payer MEDICAID | END 2024-03-10 12:09 | disposition left against medical advice (07) | LOC: DL.ED 10:45 | DX: Z53.21 Procedure and treatment not carried out due to patient leaving prior to being seen by health care provider (principal) ==